=== PATIENT | male | born 1940 | race Caucasian/White ===

== ENCOUNTER 2016-11-06 08:32 | Day surgery (SDC) | payer OTHER, MEDICARE ==
[2016-11-05 14:14] VITALS: BMI 27.1
[2016-11-06] MEDS ORDERED: PROPOFOL 20 ML ONE ×3 (10:00)
[2016-11-06 11:13] VITALS: TEMP 97.5
[2016-11-06 11:19] VITALS: PULSE 60
[2016-11-06 11:56] VITALS: BP 114/64
--- NOTE | 2016-11-11 11:20 | PATH ---
Surgical Pathology Report Patient Name: DAISY CARRION [facility]. Rec. #: [id number] /Age/Gender: 1940 (Age: 76) / M Account: [id number] Location: U-ENDOSCOPY Taken: 11/06/2016 Received: 11/06/2016 Reported: 11/09/2016 Physicians: Solomon Petersen M.D. Specimen(s) Received A: BX 2ND PORTION DUODENUM & BULB B: BX ANTRUM C: BX DISTAL ESOPHAGUS D: BX MID ESOPHAGUS E: BX CECUM F: BX RIGHT COLON G: BX TRANSVERSE COLON H: BX DESCENDING COLON I: BX SIGMOID COLON J: BX RECTUM Clinical History Dysphagia, ulcerative colitis surveillance Eosinophilic esophagitis, mild gastritis, quiescent ulcerative colitis Final Diagnosis A. DUODENUM, SECOND PORTION AND BULB, BIOPSY: DUODENAL MUCOSA WITH NO PATHOLOGIC CHANGES. NO HISTOLOGIC EVIDENCE OF GLUTEN SENSITIVE ENTEROPATHY (CELIAC SPRUE) IDENTIFIED. B. DESIGNATED ANTRUM, BIOPSY: SQUAMOUS MUCOSA WITH PAPILLOMATOSIS AND SUPERFICIAL ULCERATION SUGGESTIVE OF REFLUX ESOPHAGITIS. NO INTESTINAL METAPLASIA IDENTIFIED (NO ADRIAN'S IDENTIFIED). NO EOSINOPHILIC ESOPHAGITIS IDENTIFIED. FUNGAL STAIN (PAS) IS NEGATIVE. C. DESIGNATED DISTAL ESOPHAGUS, BIOPSY: GASTRIC ANTRAL MUCOSA WITH MILD CHRONIC GASTRITIS. IMMUNOSTAIN FOR H. PYLORI IS NEGATIVE. D. DESIGNATED MIDESOPHAGUS, BIOPSY: SQUAMOUS MUCOSA WITH PAPILLOMATOSIS AND SUPERFICIAL ULCERATION SUGGESTIVE OF REFLUX ESOPHAGITIS. NO INTESTINAL METAPLASIA IDENTIFIED (NO ADRIAN'S IDENTIFIED). NO EOSINOPHILIC ESOPHAGITIS IDENTIFIED. FUNGAL STAIN (PAS) IS POSITIVE (RARE FUNGAL AND YEAST FORMS). E. COLON, CECUM, BIOPSY: COLONIC MUCOSA WITH NONSPECIFIC FOCAL ACTIVE COLITIS. NO ARCHITECTURAL DISTORTION, GRANULOMATA, OR DYSPLASIA IDENTIFIED. F. COLON, RIGHT, BIOPSY: COLONIC MUCOSA WITH NO PATHOLOGIC CHANGES. NO ACTIVE COLITIS, ARCHITECTURAL DISTORTION, GRANULOMATA, OR DYSPLASIA IDENTIFIED. NO MICROSCOPIC COLITIS IDENTIFIED (NO LYMPHOCYTIC OR COLLAGENOUS COLITIS IDENTIFIED). G. COLON, TRANSVERSE, BIOPSY: COLONIC MUCOSA WITH NO PATHOLOGIC CHANGES. NO ACTIVE COLITIS, ARCHITECTURAL DISTORTION, GRANULOMATA, OR DYSPLASIA IDENTIFIED. NO MICROSCOPIC COLITIS IDENTIFIED (NO LYMPHOCYTIC OR COLLAGENOUS COLITIS IDENTIFIED). H. COLON, DESCENDING, BIOPSY: COLONIC MUCOSA WITH FOCAL PANETH CELL METAPLASIA SUGGESTIVE OF QUIESCENT COLITIS. NO ACTIVE COLITIS, GRANULOMATA OR DYSPLASIA IDENTIFIED. I. COLON, SIGMOID, BIOPSY: COLONIC MUCOSA WITH FOCAL HYPERPLASIA OF MUCOSA ASSOCIATED LYMPHOID TISSUE, AND FOCAL ARCHITECTURAL DISTORTION SUGGESTIVE OF QUIESCENT COLITIS. NO ACTIVE COLITIS, GRANULOMATA OR DYSPLASIA IDENTIFIED. J. COLON, RECTUM, BIOPSY: COLONIC MUCOSA WITH NO PATHOLOGIC CHANGES. NO ACTIVE COLITIS, ARCHITECTURAL DISTORTION, GRANULOMATA, OR DYSPLASIA IDENTIFIED. NO MICROSCOPIC COLITIS IDENTIFIED (NO LYMPHOCYTIC OR COLLAGENOUS COLITIS IDENTIFIED). Electronically Signed Yfn Samson M.D. Gross Description A. Received in formalin, labeled "biopsy second portion of duodenum and bulb" are 3 osorio, irregular portions of soft tissue averaging 0.3 cm. in greatest dimension. The specimens are submitted in toto in one cassette. B. Received in formalin, labeled "biopsy antrum" are 2 osorio, irregular portions of soft tissue averaging 0.4 cm. in greatest dimension. The specimens are submitted in toto in one cassette. C. Received in formalin, labeled "distal esophagus" is a osorio, irregular portion of soft tissue measuring 0.2 cm. in greatest dimension. The specimen is submitted in toto in one cassette. D. Received in formalin, labeled "mid esophagus" are 3 osorio, irregular portions of soft tissue ranging from 0.1-0.7 cm. in greatest dimension. The specimens are submitted in toto in one cassette. E. Received in formalin, labeled "biopsy cecum" is a osorio, irregular portion of soft tissue measuring 0.1 cm. in greatest dimension. The specimen is submitted in toto in one cassette. F. Received in formalin, labeled "biopsy right colon" are 3 osorio, irregular portions of soft tissue ranging from 0.2-0.5 cm. in greatest dimension. The specimens are submitted in toto in one cassette. G. Received in formalin, labeled "biopsy transverse colon" are 4 osorio, irregular portions of soft tissue ranging from 0.2-0.9 cm. in greatest dimension. The specimens are submitted in toto in one cassette. H. Received in formalin, labeled "biopsy descending colon" are 4 osorio, irregular portions of soft tissue ranging from 0.2-0.5 cm. in greatest dimension. The specimens are submitted in toto in one cassette. I. Received in formalin, labeled "biopsy sigmoid colon" are 4 osorio, irregular portions of soft tissue ranging from 0.2-0.4 cm. in greatest dimension. The specimens are submitted in toto in one cassette. J. Received in formalin, labeled "biopsy rectum" are 4 osorio, irregular portions of soft tissue ranging from 0.2-0.6 cm. in greatest dimension. The specimens are submitted in toto in one cassette. 11/06/201611/06/2016
--- NOTE | 2016-11-11 11:20 | PATH ---
Cytology Non-Gynecological Report Patient Name: DAISY CARRION [facility]. Rec. #: [id number] /Age/Gender: 1940 (Age: 76) / M Account: [id number] Location: [facility] Taken: 11/06/2016 Received: 11/09/2016 Reported: 11/10/2016 Physicians: Solomon Petersen M.D. 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 NO MALIGNANT CELLS IDENTIFIED. REACTIVE SQUAMOUS CELLS. ACUTE INFLAMMATION. SCATTERED FUNGAL ORGANISMS MORPHOLOGICALLY CONSISTENT WITH ТАТЬЯНА SPECIES PRESENT. Comment: Also refer to [id number] (part D) for the biopsy results. Electronically Signed Nahum Price M.D. Gross Description Received is a brush and one slide in 95% alcohol. Two additional smear slides are prepared, total of three Pap stained smear slides are made.
== END 2016-11-06 12:02 | disposition home or self-care (01) ==
LOC: JASU-ENDO 08:32
PROVIDERS: ATTEND Internal Medicine Gastroenterology
PROC: 0DB28ZX Excision of Middle Esophagus, Via Natural or Artificial Opening Endoscopic, Diagnostic (ICD-10-PCS; 2016-11-06)
PROC: 0DB68ZX Excision of Stomach, Via Natural or Artificial Opening Endoscopic, Diagnostic (ICD-10-PCS; 2016-11-06)
PROC: 0DB98ZX Excision of Duodenum, Via Natural or Artificial Opening Endoscopic, Diagnostic (ICD-10-PCS; 2016-11-06)
PROC: 0DB38ZX Excision of Lower Esophagus, Via Natural or Artificial Opening Endoscopic, Diagnostic (ICD-10-PCS; 2016-11-06)
PROC: 0DBE8ZX Excision of Large Intestine, Via Natural or Artificial Opening Endoscopic, Diagnostic (ICD-10-PCS; principal; 2016-11-06 10:00)
DX: Z12.11 Encounter for screening for malignant neoplasm of colon (principal); Z87.19 Personal history of other diseases of the digestive system; K64.8 Other hemorrhoids; K63.89 Other specified diseases of intestine; K57.30 Diverticulosis of large intestine without perforation or abscess without bleeding; K20.0 Eosinophilic esophagitis; K25.9 Gastric ulcer, unspecified as acute or chronic, without hemorrhage or perforation
CPT/HCPCS: 88104; 88305-TC; 88312-TC; 88342-TC

== ENCOUNTER 2017-11-01 07:06 | Day surgery (SDC) | payer OTHER, MEDICARE ==
[2017-10-29 13:41] VITALS: BMI 24.3
[2017-11-01] MEDS ORDERED: LIDOCAINE HCL 2% (20ML MULTI-DOSE VIAL) NR ONE (08:00)
[2017-11-01] MEDS ORDERED: PROPOFOL 20 ML ONE ×3 (08:01)
[2017-11-01 11:15] VITALS: BP 134/78; PULSE 77; TEMP 97.9
--- NOTE | 2017-11-03 12:20 | PATH ---
Surgical Pathology Report Patient Name: DAISY CARRION [facility]. Rec. #: [id number] /Age/Gender: 1940 (Age: 77) / M Account: [id number] Location: U-ENDOSCOPY Taken: 11/01/2017 Received: 11/01/2017 Reported: 11/03/2017 Physicians: Solomon Petersen M.D. Specimen(s) Received A: BX MID ESOPHAGUS @ 25CM B: BX CECUM C: POLYP RIGHT COLON D: BX TRANSVERSE COLON E: BX SIGMOID F: BX RECTUM Clinical History Dysphagia with mid esophageal ring, ulcerative colitis, surveillance Postoperative diagnosis: Esophageal narrowing with ring, right colon polyp, quiescent colitis Final Diagnosis A. MID ESOPHAGUS, 25 CM, BIOPSY: SQUAMOUS MUCOSA WITH MILD ACUTE ESOPHAGITIS AND BASAL CELL HYPERPLASIA. PAS SPECIAL STAIN FOR FUNGUS IS POSITIVE FOR FUNGAL FORMS MORPHOLOGICALLY CONSISTENT WITH MATIAS SPECIES. SEE COMMENT. B. CECUM, BIOPSY: COLONIC MUCOSA WITH FOCAL MILD CHRONIC ACTIVE COLITIS INCLUDING FOCAL CRYPTITIS, ARCHITECTURAL DISTORTION, INCREASED ACUTE AND CHRONIC INFLAMMATORY CELLS WITHIN LAMINA PROPRIA, AND PROMINENT LYMPHOID AGGREGATES. NO GRANULOMA OR DYSPLASIA IDENTIFIED. C. COLON, RIGHT, POLYP, BIOPSY: TUBULAR ADENOMA. D. TRANSVERSE COLON, BIOPSY: COLONIC MUCOSA WITH MILD ARCHITECTURAL DISTORTION AND INCREASED CHRONIC INFLAMMATORY CELLS WITHIN LAMINA PROPRIA. NO GRANULOMA OR DYSPLASIA IDENTIFIED. E. SIGMOID COLON, BIOPSY: COLONIC MUCOSA WITH MILD ARCHITECTURAL DISTORTION AND INCREASED CHRONIC INFLAMMATORY CELLS WITHIN LAMINA PROPRIA AND FOCAL SUPERFICIAL HYPERPLASTIC FEATURES. NO GRANULOMA OR DYSPLASIA IDENTIFIED. F. RECTUM, BIOPSY: COLONIC MUCOSA WITH ARCHITECTURAL DISTORTION, INCREASED INFLAMMATORY CELLS, FOCAL FIBROSIS WITHIN LAMINA PROPRIA AND SUPERFICIAL HYPERPLASTIC FEATURES. NO GRANULOMA OR DYSPLASIA IDENTIFIED. Comment: Part A, Few eosinophils are noted (up to 4/hpf) and not diagnostic for eosinophilic esophagitis. The specimen is superficial without any submucosa component to fully evaluate for features of scleroderma. Parts B-F, History of ulcerative colitis is noted. Findings are compatible with idiopathic/inflammatory bowel disease. Suggest clinical and endoscopic correlation. Electronically Signed Simona Rivera M.D. Gross Description A. Received in formalin, labeled "biopsy mid esophagus at 25 cm" are 3 osorio, irregular portions of soft tissue ranging from 0.1-0.3 cm. in greatest dimension. The specimens are submitted in toto in one cassette. B. Received in formalin, labeled "biopsy cecum" are 2 osorio, irregular portions of soft tissue averaging 0.2 cm. in greatest dimension. The specimens are submitted in toto in one cassette. C. Received in formalin, labeled "biopsy polyp at right colon" are 5 osorio, irregular portions of soft tissue ranging from 0.2-0.7 cm. in greatest dimension. The specimens are submitted in toto in one cassette. D. Received in formalin, labeled "biopsy transverse colon" are 4 osorio, irregular portions of soft tissue ranging from 0.2-0.4 cm. in greatest dimension. The specimens are submitted in toto in one cassette. E. Received in formalin, labeled "biopsy sigmoid" are 3 osorio, irregular portions of soft tissue ranging from 0.1-0.4 cm. in greatest dimension. The specimens are submitted in toto in one cassette. F. Received in formalin, labeled "biopsy rectum" are 5 osorio, irregular portions of soft tissue ranging from 0.2-0.5 cm. in greatest dimension. The specimens are submitted in toto in one cassette. 11/01/2017 [facility]11/01/2017
== END 2017-11-01 11:15 | disposition home or self-care (01) ==
LOC: JASU-ENDO 07:06
PROVIDERS: ATTEND Internal Medicine Gastroenterology
PROC: 0D728ZZ Dilation of Middle Esophagus, Via Natural or Artificial Opening Endoscopic (ICD-10-PCS; 2017-11-01)
PROC: 0DB28ZX Excision of Middle Esophagus, Via Natural or Artificial Opening Endoscopic, Diagnostic (ICD-10-PCS; 2017-11-01)
PROC: 0DBK8ZX Excision of Ascending Colon, Via Natural or Artificial Opening Endoscopic, Diagnostic (ICD-10-PCS; principal; 2017-11-01 08:00)
DX: Z12.11 Encounter for screening for malignant neoplasm of colon (principal); K51.80 Other ulcerative colitis without complications; D12.2 Benign neoplasm of ascending colon; R13.19 Other dysphagia
CPT/HCPCS: 74220-TC-FY; 88305-TC; 88312-TC

== ENCOUNTER 2018-04-22 08:11 | Day surgery (SDC) | payer OTHER, MEDICARE ==
[2018-04-21 11:14] VITALS: BMI 23.6
[2018-04-22] MEDS ORDERED: ROCURONIUM BROMIDE 50 MG/5 ML VIAL ONE (09:13)
[2018-04-22] MEDS ORDERED: PROPOFOL 20 ML ONE (09:13)
[2018-04-22] MEDS ORDERED: MIDAZOLAM HCL 2 MG/2 ML SINGLE DOSE VIAL ONE (09:14)
[2018-04-22] MEDS ORDERED: BUPIVACAINE HCL/PF 0.5% (5MG/ML) 10 ML VIAL ONE ×2 (09:36→10:48)
--- NOTE | 2018-04-22 09:43 | HP ---
History & Physical Update - History History: No Change - Physical Physical: No Change - Assessment Assessment: No Change - Plan Plan: No Change (no changes since visit on 04/19/18)
[2018-04-22] MEDS ORDERED: ePHEDrine SULFATE 50 MG/1 ML AMPULE ONE (10:18)
[2018-04-22] MEDS ORDERED: ceFAZolin SODIUM 1 GM VIAL IVPB ONE (10:20)
[2018-04-22] MEDS ORDERED: PHENYLEPHRINE HCL 10 MG/1 ML SINGLE DOSE VIAL ONE (10:32)
[2018-04-22] MEDS ORDERED: NEOSTIGMINE METHYLSULFATE 0.5 MG/ML - 10 ML MDV ONE (10:32)
[2018-04-22] MEDS ORDERED: GLYCOPYRROLATE 0.2 MG/1 ML VIAL ONE ×2 (10:32→11:23)
[2018-04-22] MEDS ORDERED: ONDANSETRON 4 MG/2 ML VIAL IVPUSH PRN (11:20)
[2018-04-22] MEDS ORDERED: LACTATED RINGERS SOLUTION 1,000 ML IV SCH (11:30)
[2018-04-22] MEDS ORDERED: BUPIVACAINE HCL/PF 0.5% (5MG/ML) 10 ML VIAL IJ ONE (11:38)
--- NOTE | 2018-04-22 11:43 | OP ---
Operative Note - Note: Operative Date: 04/22/18 Pre-Operative Diagnosis: UMBILICAL HERNIA WITH OBSTRUCTION Operation: UMBILICAL HERNIA REPAIR WITH MESH, PARTIAL OMENTECTOMY Findings: 10 X 10 CM UMBILICAL HERNIA WITH INCARCERATED OMENTUM Implants: WENTRALEX ST MESH 3.2" Post-Operative Diagnosis: Same as Pre-op Surgeon: Norm Chambers Inorganic Chemistry Professor: Roxanna Gomez Anesthesia: General Specimens Removed: OMENTUM Estimated Blood Loss (mls): 15 Operative Report Dictated: Yes
[2018-04-22] MEDS ORDERED: ALBUTEROL SO4 8 GM HFA INHALER IH PRN (12:06)
[2018-04-22] MEDS ORDERED: LORazepam 0.5 MG TABLET PO PRN (12:06)
[2018-04-22] MEDS ORDERED: oxyCODONE HCL 5 MG TABLET PO PRN (12:10)
[2018-04-22] MEDS ORDERED: DOCUSATE SODIUM 100 MG CAPSULE (FP) PO PRN (12:11)
--- NOTE | 2018-04-22 12:17 | SURG ---
Surgery Chief Embalmer Note Chief Embalmer: Roxanna Gomez PA-C Date of Service: 04/22/18 Diagnosis: UMBILICAL HERNIA WITH OBSTRUCTION Procedure: UMBILICAL HERNIA REPAIR WITH MESH, PARTIAL OMENTECTOMY I was present for the entirety of the operative procedure. For further detail, please refer to operative report. Visit type - Case Type Case Type: Scheduled - Emergency Emergency Visit: No - New patient This patient is new to me today: Yes Date on this admission: 04/22/18
[2018-04-22] MEDS ORDERED: SODIUM CHLORIDE 1,000 ML IV SCH (12:30)
[2018-04-22] MEDS ORDERED: MESALAMINE PO SCH (14:00)
[2018-04-22] MEDS: buPROPion HCL 75 MG TABLET PO SCH ×2 (18:36→22:09)
[2018-04-22] MEDS ORDERED: ROSUVASTATIN CA 5 MG TABLET (FP) PO SCH (22:00)
[2018-04-22] MEDS: oxyCODONE HCL 5 MG TABLET PO PRN (23:01)
[2018-04-23] MEDS: oxyCODONE HCL 5 MG TABLET PO PRN ×3 (02:43→14:11)
[2018-04-23] MEDS: buPROPion HCL 75 MG TABLET PO SCH ×2 (05:57→14:11)
[2018-04-23 06:05] VITALS: BP 107/64; PULSE 75; TEMP 98.9
[2018-04-23] MEDS ORDERED: TAMSULOSIN HCL 0.4 MG CAP PO SCH (08:30)
[2018-04-23] MEDS ORDERED: PT OWN MED DRAWER 7, Y5N ONE ×2 (08:59→14:01)
[2018-04-23] MEDS ORDERED: MERCAPTOPURINE 50 MG TABLET PO SCH (10:00)
[2018-04-23] MEDS ORDERED: FINASTERIDE 5 MG TABLET (FP) PO SCH (10:00)
[2018-04-23] MEDS ORDERED: FOLIC ACID 1 MG TABLET (FP) PO SCH (10:00)
[2018-04-23] MEDS ORDERED: amLODIPine BESYLATE 10 MG TABLET (FP) PO SCH (10:00)
--- NOTE | 2018-04-25 15:34 | PATH ---
Surgical Pathology Report Patient Name: DAISY CARRION Med. Rec. #: [id number] /Age/Gender: 1940 (Age: 78) / M Account: [id number] Location: AMBULATORY SURG Taken: 04/22/2018 Received: 04/22/2018 Reported: 04/25/2018 Physicians: Norm Chambers M.D. Specimen(s) Received OMENTUM AND HERNIA SAC AND SKIN Clinical History Umbilical hernia Final Diagnosis OMENTUM, HERNIA SAC, SKIN, OPEN UMBILICAL HERNIA REPAIR: FIBROADIPOSE TISSUE CONSISTENT WITH HERNIA SAC. BENIGN OMENTAL ADIPOSE TISSUE. SKIN WITHOUT SIGNIFICANT PATHOLOGIC FINDINGS. Electronically Signed Simona Rivera M.D. Gross Description Received in formalin, labeled "omentum, hernia sac and skin" is a portion of 12 x 10 x 3.0 cm adipose tissue consistent with omentum and separate fragments of skin, membranous to fibroadipose tissue measuring 9.0 x 5.0 x 2 cm in aggregate. Water Filterer sections are submitted in two cassettes. Cassette #1: skin adipose tissue and membranous tissue. #2: Omentum KWS/04/22/2018 sulki/04/22/2018
--- NOTE | 2018-04-26 08:33 | OP ---
DATE OF OPERATION: 04/22/2018 LOCATION: Ambulatory surgery. PROCEDURE: Open ventral hernia repair with mesh and partial omentectomy. PREOPERATIVE DIAGNOSIS: Ventral umbilical hernia with obstruction. POSTOPERATIVE DIAGNOSIS: Ventral umbilical hernia with obstruction. SURGEON: Norm Chambers MD ANESTHESIA: General endotracheal. FINDINGS ON PROCEDURE: This is a 78-year-old male who presents with longstanding history of slowly growing umbilical ventral hernia just about 10 x 10 cm in size. The incarcerated hernia was noted to contain omentum, and hernia was noted to be reducible. So, patient was advised elective repair of the hernia, and consent was obtained after discussing the risks, benefits, and alternatives of the procedure. DESCRIPTION OF PROCEDURE: Patient was brought to the operating room and placed in supine position. General endotracheal anesthesia was administered. The abdomen was prepped and draped in the usual sterile fashion. Using scalpel blade No. 10, an elliptical incision was made with dissection carried down to the subcutaneous tissue. Further dissection using Bovie cautery was done to open the hernia sac. This contained a large amount of incarcerated omentum. The omentum was serially clamped and ligated with Vicryl 2-0 ligatures. The omental stump was then pushed back to the peritoneal cavity. A 3-cm umbilical defect was noted. The hernia sac was completely excised down to the level of the fascia, and the subcutaneous tissue was undermined about 1 cm on each side of the defect. There was a large size 3.2-inch round Ventralex ST Mesh, which was then deployed as an intraperitoneal underlay mesh with its ribbon anchored to the fascia on each side of the midline with Prolene 0 suture. The defect was partially closed with interrupted Prolene 0 suture taking bites on the mesh at the superior and inferior ends of the hernia defect. Afterwards, the skin was closed with interrupted Vicryl 0 suture for the dermis, interrupted Polysorb 3-0 for the dermis, and continuous Biosyn 4-0 suture for the subcuticular layer. The wound closure was then covered with pressure dressing. The patient was successfully extubated and transferred to the post-anesthesia care unit in satisfactory condition. ESTIMATED BLOOD LOSS: About 15 mL. WOUND CLASS: Clean. The patient received 1 g of Ancef prior to the start of the procedure. Raven [id number]
== END 2018-04-23 14:49 | disposition home or self-care (01) ==
LOC: JASUSAT 08:11 → JASU-SURG 08:11 → J8W 17:45 → JASUSAT 04-23 14:49
PROVIDERS: ATTEND Surgery
PROC: 0DBU0ZZ Excision of Omentum, Open Approach (ICD-10-PCS; 2018-04-22)
PROC: 0WUF0JZ Supplement Abdominal Wall with Synthetic Substitute, Open Approach (ICD-10-PCS; principal; 2018-04-22 09:30)
DX: K43.6 Other and unspecified ventral hernia with obstruction, without gangrene (principal)
CPT/HCPCS: 88305-TC; 94760

== ENCOUNTER 2022-10-27 11:23 | Inpatient (IN) | payer OTHER, MEDICARE ==
[2022-10-27 11:31] VITALS: BMI 27.3
[2022-10-27] MEDS ORDERED: VANCOMYCIN 1 GM in D5W (PRE-DOCKED) 1,000 MG/250 ML (RESTRICTED TO ID ONLY IVPB ONE (12:44)
[2022-10-27] MEDS ORDERED: AMPICILLIN NA/SULBACTAM NA 3 GM in SODIUM CHLORIDE 100 ML IVPB ONE (12:44)
[2022-10-27] MEDS ORDERED: ACETAMINOPHEN 1000 MG/100 ML BAG IVPB ONE (12:46)
[2022-10-27] MEDS ORDERED: VANCOMYCIN/WATER FOR INJ (PEG) 1,000 MG/200 ML BAG IVPB ONE (13:06)
[2022-10-27] MEDS ORDERED: AMPICILLIN NA/SULBACTAM NA 1.5 GM VIAL ONE ×2 (13:06→13:27)
[2022-10-27] MEDS ORDERED: ACETAMINOPHEN INJECTION 100 ML IVPB ONE ×2 (13:06→14:39)
[2022-10-27] MEDS ORDERED: CEFEPIME HCL/D5W 2 GM/50 ML BAG IVPB ONE (13:35)
[2022-10-27 14:12] LABS: BASO % 0.4 % (0-2.0); EOS % 2.1 % (0-4.5); HEMOGLOBIN 12.3 GM/dL (11.7-16.9); LYMPH % 15.8 % (8-40); MCH 28.6 pg (25.7-33.7); MCHC 34.1 g/dl (32.0-35.9); MEAN CELL VOLUME 83.9 fl (80-96); MEAN PLT VOLUME 8.5 fl (7.5-11.1); MONO % 7.9 % (3.8-10.2); NEUT % 73.8 % (42.8-82.8); PLATELET COUNT 160 10^3/uL (134-434); RBC 4.28 M/mm3 (4.00-5.60); RDW 14.8 % (11.9-15.9); WHITE BLOOD COUNT 8.2 K/mm3 (4.0-10.0)
[2022-10-27 14:32] LABS: POTASSIUM 5.8 mmol/L (3.5-5.1)
[2022-10-27 14:35] LABS: ALBUMIN 3.5 g/dl (3.4-5.0); BLOOD UREA NITROGEN 30.6 mg/dL (7-18)
[2022-10-27 14:38] LABS: CREATININE 2.4 mg/dL (0.55-1.3)
[2022-10-27 14:39] LABS: TOT PROT 7.5 g/dl (6.4-8.2)
[2022-10-27 14:40] LABS: BILIRUBIN,TOTAL 0.5 mg/dL (0.2-1)
[2022-10-27] MEDS ORDERED: CEFEPIME 2 GM/100 ML BAG IVPB ONE (14:40)
[2022-10-27 14:57] LABS: ERYTHROCYTE SEDIMENTATION RATE 44 mm/hr (0-20)
[2022-10-27] MEDS ORDERED: APIXABAN 5 MG TABLET PO ONE (15:10)
[2022-10-27] MEDS ORDERED: APIXABAN 5 MG TABLET ONE (15:44)
[2022-10-27] MEDS ORDERED: oxyCODONE HCL 5 MG TABLET PO ONE (22:11)
[2022-10-27] MEDS: APIXABAN 5 MG TABLET PO SCH (22:15)
[2022-10-28 09:25] LABS: BASO % 0.4 % (0-2.0); EOS % 2.1 % (0-4.5); HEMATOCRIT 37.5 % (35.4-49); HEMOGLOBIN 12.9 GM/dL (11.7-16.9); LYMPH % 9.3 % (8-40); MCHC 34.5 g/dl (32.0-35.9); MEAN PLT VOLUME 8.4 fl (7.5-11.1); MONO % 5.1 % (3.8-10.2); NEUT % 83.1 % (42.8-82.8); PLATELET COUNT 168 10^3/uL (134-434); RBC 4.46 M/mm3 (4.00-5.60); RDW 14.8 % (11.9-15.9); WHITE BLOOD COUNT 7.2 K/mm3 (4.0-10.0)
[2022-10-28 09:46] LABS: POTASSIUM 4.6 mmol/L (3.5-5.1)
[2022-10-28] MEDS: TAMSULOSIN HCL 0.4 MG CAP PO SCH (09:49)
[2022-10-28] MEDS: FINASTERIDE 5 MG TABLET (FP) PO SCH (09:49)
[2022-10-28] MEDS: APIXABAN 5 MG TABLET PO SCH (09:49)
[2022-10-28] MEDS: SERTRALINE HCL 50 MG TABLET (FP) PO SCH (09:49)
[2022-10-28 09:53] LABS: ALBUMIN 3.4 g/dl (3.4-5.0); BLOOD UREA NITROGEN 28.3 mg/dL (7-18); CALCIUM 8.6 mg/dL (8.5-10.1)
[2022-10-28] MEDS: ROSUVASTATIN CA 5 MG TABLET PO SCH (09:53)
[2022-10-28 09:54] LABS: MAGNESIUM 1.7 mg/dL (1.8-2.4)
[2022-10-28 09:56] LABS: CREATININE 2.2 mg/dL (0.55-1.3); PHOSPHOROUS 3.8 mg/dL (2.5-4.9)
[2022-10-28 09:57] LABS: BILIRUBIN,TOTAL 0.6 mg/dL (0.2-1); TOT PROT 7.4 g/dl (6.4-8.2)
[2022-10-28] MEDS ORDERED: ACETAMINOPHEN 325 MG TABLET (FP) PO ONE (11:45)
[2022-10-28] MEDS ORDERED: oxyCODONE HCL 5 MG TABLET PO ONE (11:45)
[2022-10-28] MEDS ORDERED: VANCOMYCIN/WATER 1250 MG 1,250 MG/250 ML BAG IVPB ONE (12:00)
[2022-10-28] MEDS ORDERED: VANCOMYCIN/WATER 1,250 MG/250 ML BAG (RESTRICTED TO ID ONLY) IVPB SCH (12:00)
[2022-10-28] MEDS ORDERED: VANCOMYCIN/WATER 1250 MG 1,250 MG/250 ML BAG IVPB SCH (12:45)
[2022-10-28] MEDS: GABAPENTIN 100 MG CAPSULE PO SCH (15:04)
[2022-10-28] MEDS ORDERED: ACETAMINOPHEN 325 MG TABLET (FP) PO PRN (15:42)
[2022-10-28] MEDS: MUPIROCIN CA 2% TOPICAL CREAM 15 GM TUBE TP SCH (18:37)
[2022-10-29] MEDS: GABAPENTIN 100 MG CAPSULE PO SCH ×4 (00:05→21:24)
[2022-10-29] MEDS: APIXABAN 5 MG TABLET PO SCH ×3 (00:06→21:24)
[2022-10-29] MEDS: MUPIROCIN CA 2% TOPICAL CREAM 15 GM TUBE TP SCH ×3 (00:06→10:50)
[2022-10-29] MEDS: MIRTAZAPINE 15 MG TABLET (FP) PO SCH ×2 (00:08→21:26)
[2022-10-29] MEDS: ACETAMINOPHEN 650 MG/20.3 ML ORAL SOLUTION (CUPS) PO PRN ×3 (01:41→19:54)
[2022-10-29] MEDS: METOPROLOL TARTRATE 25 MG TABLET (FP) PO SCH ×2 (10:30→21:24)
[2022-10-29] MEDS: ROSUVASTATIN CA 5 MG TABLET PO SCH (10:50)
[2022-10-29] MEDS: VANCOMYCIN/WATER 1250 MG 1,250 MG/250 ML BAG IVPB SCH (10:50)
[2022-10-29] MEDS: FINASTERIDE 5 MG TABLET (FP) PO SCH (10:50)
[2022-10-29] MEDS: TAMSULOSIN HCL 0.4 MG CAP PO SCH (10:50)
[2022-10-29] MEDS: SERTRALINE HCL 50 MG TABLET (FP) PO SCH (10:50)
[2022-10-29 10:56] LABS: IRON SERUM 75 ug/dL (50-175)
[2022-10-29 10:57] LABS: TOTAL IRON BINDING CAPACITY 311 ug/dL (250-450)
[2022-10-29 18:27] LABS: BASO % 0.3 % (0-2.0); EOS % 4.1 % (0-4.5); HEMATOCRIT 35.5 % (35.4-49); LYMPH % 10.5 % (8-40); MCH 28.3 pg (25.7-33.7); MCHC 33.9 g/dl (32.0-35.9); MEAN CELL VOLUME 83.3 fl (80-96); MEAN PLT VOLUME 8.2 fl (7.5-11.1); NEUT % 78.1 % (42.8-82.8); PLATELET COUNT 166 10^3/uL (134-434); RBC 4.26 M/mm3 (4.00-5.60); WHITE BLOOD COUNT 6.7 K/mm3 (4.0-10.0)
[2022-10-29 18:54] LABS: POTASSIUM 4.8 mmol/L (3.5-5.1)
[2022-10-29 18:58] LABS: CALCIUM 8.3 mg/dL (8.5-10.1)
[2022-10-29 18:59] LABS: BLOOD UREA NITROGEN 33.6 mg/dL (7-18)
[2022-10-29 19:02] LABS: CREATININE 2.4 mg/dL (0.55-1.3)
[2022-10-30] MEDS: MUPIROCIN CA 2% TOPICAL CREAM 15 GM TUBE TP SCH ×3 (00:10→21:21)
[2022-10-30] MEDS: GABAPENTIN 100 MG CAPSULE PO SCH ×3 (05:33→21:13)
[2022-10-30] MEDS: TAMSULOSIN HCL 0.4 MG CAP PO SCH (08:36)
[2022-10-30] MEDS: FINASTERIDE 5 MG TABLET (FP) PO SCH (09:02)
[2022-10-30] MEDS: SERTRALINE HCL 50 MG TABLET (FP) PO SCH (09:03)
[2022-10-30] MEDS: APIXABAN 5 MG TABLET PO SCH ×2 (09:03→21:13)
[2022-10-30] MEDS: METOPROLOL TARTRATE 25 MG TABLET (FP) PO SCH ×2 (09:03→21:13)
[2022-10-30] MEDS: ROSUVASTATIN CA 5 MG TABLET PO SCH (09:03)
[2022-10-30 10:15] LABS: POTASSIUM 5.2 mmol/L (3.5-5.1)
[2022-10-30 10:17] LABS: CALCIUM 9.2 mg/dL (8.5-10.1)
[2022-10-30 10:18] LABS: ALBUMIN 3.3 g/dl (3.4-5.0); BLOOD UREA NITROGEN 32.3 mg/dL (7-18)
[2022-10-30 10:21] LABS: CREATININE 2.4 mg/dL (0.55-1.3)
[2022-10-30 10:22] LABS: BILIRUBIN,TOTAL 0.8 mg/dL (0.2-1)
[2022-10-30 10:23] LABS: TOT PROT 7.3 g/dl (6.4-8.2)
[2022-10-30] MEDS ORDERED: SODIUM ZIRCONIUM CYCLOSILICATE (LOKELMA) 5 GM PACKET PO SCH (14:45)
[2022-10-30] MEDS ORDERED: ACETAMINOPHEN 325 MG TABLET (FP) ONE (21:09)
[2022-10-30] MEDS: MIRTAZAPINE 15 MG TABLET (FP) PO SCH (21:13)
[2022-10-30] MEDS: ACETAMINOPHEN 650 MG/20.3 ML ORAL SOLUTION (CUPS) PO PRN (21:15)
[2022-10-30] MEDS: ALBUTEROL SO4 HFA INHALER IH PRN (22:49)
[2022-10-31] MEDS: GABAPENTIN 100 MG CAPSULE PO SCH ×3 (05:19→22:14)
[2022-10-31] MEDS: TAMSULOSIN HCL 0.4 MG CAP PO SCH (09:44)
[2022-10-31] MEDS: ROSUVASTATIN CA 5 MG TABLET PO SCH (10:36)
[2022-10-31] MEDS: APIXABAN 5 MG TABLET PO SCH ×2 (10:36→22:14)
[2022-10-31] MEDS: FINASTERIDE 5 MG TABLET (FP) PO SCH (10:36)
[2022-10-31] MEDS: CYANOCOBALAMIN 1,000 MCG TABLET (FP) PO SCH (10:36)
[2022-10-31] MEDS: METOPROLOL TARTRATE 25 MG TABLET (FP) PO SCH ×2 (10:36→22:13)
[2022-10-31] MEDS: SERTRALINE HCL 50 MG TABLET (FP) PO SCH (10:36)
[2022-10-31] MEDS: VANCOMYCIN/WATER 1250 MG 1,250 MG/250 ML BAG IVPB SCH (10:37)
[2022-10-31 10:39] LABS: BASO % 0.1 % (0-2.0); EOS % 4.1 % (0-4.5); HEMATOCRIT 40.4 % (35.4-49); HEMOGLOBIN 13.5 GM/dL (11.7-16.9); LYMPH % 10.8 % (8-40); MCH 28.5 pg (25.7-33.7); MCHC 33.5 g/dl (32.0-35.9); MEAN CELL VOLUME 85.1 fl (80-96); MEAN PLT VOLUME 8.6 fl (7.5-11.1); MONO % 6.1 % (3.8-10.2); NEUT % 78.9 % (42.8-82.8); PLATELET COUNT 204 10^3/uL (134-434); RBC 4.75 M/mm3 (4.00-5.60); RDW 15.3 % (11.9-15.9); WHITE BLOOD COUNT 10.3 K/mm3 (4.0-10.0)
[2022-10-31 11:00] LABS: POTASSIUM 5.7 mmol/L (3.5-5.1)
[2022-10-31 11:02] LABS: CALCIUM 9.6 mg/dL (8.5-10.1)
[2022-10-31 11:03] LABS: ALBUMIN 3.6 g/dl (3.4-5.0); BLOOD UREA NITROGEN 35.2 mg/dL (7-18)
[2022-10-31 11:06] LABS: CREATININE 2.5 mg/dL (0.55-1.3)
[2022-10-31 11:07] LABS: BILIRUBIN,TOTAL 0.8 mg/dL (0.2-1); TOT PROT 7.6 g/dl (6.4-8.2)
[2022-10-31] MEDS ORDERED: diphenhydrAMINE HCL 25 MG CAPSULE (FP) PO ONE (12:14)
[2022-10-31] MEDS ORDERED: ACETAMINOPHEN 500 MG TABLET (FP) PO PRN (12:14)
[2022-10-31] MEDS: SODIUM ZIRCONIUM CYCLOSILICATE (LOKELMA) 5 GM PACKET PO SCH ×2 (12:52→22:14)
[2022-10-31] MEDS: MUPIROCIN CA 2% TOPICAL CREAM 15 GM TUBE TP SCH ×2 (12:55→22:15)
[2022-10-31] MEDS ORDERED: LACTULOSE 20 GM/30 ML UDC (FOR ORAL USE ONLY) PO ONE (15:42)
[2022-10-31] MEDS ORDERED: SODIUM CHLORIDE 0.45% 1,000 ML IV SCH (15:45)
[2022-10-31 17:49] LABS: EPI CELLS 2 /uL (0-25.1); HYALINE CASTS 1 /uL (0-3.1); PH,URINE 5.5 (5.0-8.0); URINE APPEARANCE CLEAR; URINE BACTERIA 1 /uL (0-1359); URINE BILIRUBIN NEGATIVE (NEGATIVE); URINE COLOR YELLOW; URINE GLUCOSE (UA) NEGATIVE (NEGATIVE); URINE KETONE NEGATIVE (NEGATIVE); URINE LEUK ESTERASE 1+ (NEGATIVE); URINE NITRITE NEGATIVE (NEGATIVE); URINE PROTEIN 1+ (NEGATIVE); URINE RBC 215 /uL (0-23.9); URINE UROBILINOGEN 0.2 mg/dL (0.2-1.0); URINE WBC 68 /uL (0-25.8)
[2022-10-31] MEDS: MIRTAZAPINE 15 MG TABLET (FP) PO SCH (22:14)
[2022-10-31] MEDS: ACETAMINOPHEN 650 MG/20.3 ML ORAL SOLUTION (CUPS) PO PRN (22:15)
[2022-10-31] MEDS: TETRAHYDROZOLINE HCL EYE DROPS OU PRN (22:58)
[2022-11-01] MEDS: GABAPENTIN 100 MG CAPSULE PO SCH ×3 (05:08→21:45)
[2022-11-01] MEDS: TAMSULOSIN HCL 0.4 MG CAP PO SCH (08:28)
[2022-11-01 10:07] LABS: BASO % 0.3 % (0-2.0); EOS % 4.3 % (0-4.5); HEMATOCRIT 38.1 % (35.4-49); HEMOGLOBIN 12.9 GM/dL (11.7-16.9); LYMPH % 6.6 % (8-40); MCH 28.6 pg (25.7-33.7); MCHC 33.8 g/dl (32.0-35.9); MEAN CELL VOLUME 84.7 fl (80-96); MEAN PLT VOLUME 8.3 fl (7.5-11.1); MONO % 5.4 % (3.8-10.2); NEUT % 83.4 % (42.8-82.8); PLATELET COUNT 166 10^3/uL (134-434); RBC 4.49 M/mm3 (4.00-5.60); WHITE BLOOD COUNT 8.8 K/mm3 (4.0-10.0)
[2022-11-01] MEDS: SODIUM ZIRCONIUM CYCLOSILICATE (LOKELMA) 5 GM PACKET PO SCH (10:20)
[2022-11-01] MEDS: SERTRALINE HCL 50 MG TABLET (FP) PO SCH (10:20)
[2022-11-01] MEDS: APIXABAN 5 MG TABLET PO SCH ×2 (10:21→21:45)
[2022-11-01] MEDS: CYANOCOBALAMIN 1,000 MCG TABLET (FP) PO SCH (10:21)
[2022-11-01] MEDS: ROSUVASTATIN CA 5 MG TABLET PO SCH (10:21)
[2022-11-01] MEDS: FINASTERIDE 5 MG TABLET (FP) PO SCH (10:21)
[2022-11-01] MEDS: MUPIROCIN CA 2% TOPICAL CREAM 15 GM TUBE TP SCH ×2 (10:22→21:45)
[2022-11-01 10:23] LABS: POTASSIUM 4.4 mmol/L (3.5-5.1)
[2022-11-01 10:27] LABS: BLOOD UREA NITROGEN 32.2 mg/dL (7-18); CALCIUM 8.8 mg/dL (8.5-10.1)
[2022-11-01 10:28] LABS: MAGNESIUM 1.9 mg/dL (1.8-2.4)
[2022-11-01 10:30] LABS: CREATININE 2.2 mg/dL (0.55-1.3)
[2022-11-01] MEDS: METOPROLOL TARTRATE 25 MG TABLET (FP) PO SCH ×2 (11:19→21:45)
[2022-11-01] MEDS: DOXYCYCLINE HYCLATE 100 MG CAPSULE PO SCH (18:05)
[2022-11-01] MEDS ORDERED: diphenhydrAMINE HCL 25 MG CAPSULE (FP) PO ONE (20:38)
[2022-11-01] MEDS: MIRTAZAPINE 15 MG TABLET (FP) PO SCH (21:46)
[2022-11-01] MEDS: ACETAMINOPHEN 650 MG/20.3 ML ORAL SOLUTION (CUPS) PO PRN (22:41)
[2022-11-02] MEDS: GABAPENTIN 100 MG CAPSULE PO SCH ×3 (06:32→21:17)
[2022-11-02] MEDS ORDERED: SODIUM CHLORIDE 1,000 ML IV SCH (08:45)
[2022-11-02] MEDS: TAMSULOSIN HCL 0.4 MG CAP PO SCH (09:14)
[2022-11-02] MEDS: SODIUM ZIRCONIUM CYCLOSILICATE (LOKELMA) 5 GM PACKET PO SCH (11:02)
[2022-11-02] MEDS: DOXYCYCLINE HYCLATE 100 MG CAPSULE PO SCH (11:02)
[2022-11-02] MEDS: FINASTERIDE 5 MG TABLET (FP) PO SCH (11:03)
[2022-11-02] MEDS: SERTRALINE HCL 50 MG TABLET (FP) PO SCH (11:03)
[2022-11-02] MEDS: METOPROLOL TARTRATE 25 MG TABLET (FP) PO SCH ×3 (11:03→21:18)
[2022-11-02] MEDS: APIXABAN 5 MG TABLET PO SCH ×2 (11:03→21:17)
[2022-11-02] MEDS: ROSUVASTATIN CA 5 MG TABLET PO SCH (11:03)
[2022-11-02] MEDS: CYANOCOBALAMIN 1,000 MCG TABLET (FP) PO SCH (11:03)
[2022-11-02] MEDS: ACETAMINOPHEN 650 MG/20.3 ML ORAL SOLUTION (CUPS) PO PRN ×2 (11:05→22:07)
[2022-11-02] MEDS: MUPIROCIN CA 2% TOPICAL CREAM 15 GM TUBE TP SCH ×2 (11:07→21:33)
[2022-11-02 12:30] VITALS: RESP 18
[2022-11-02] MEDS: SODIUM CHLORIDE 0.45% 1,000 ML IV SCH (12:42)
[2022-11-02 13:12] LABS: BASO % 0.1 % (0-2.0); HEMATOCRIT 39.4 % (35.4-49); HEMOGLOBIN 13.2 GM/dL (11.7-16.9); LYMPH % 8.5 % (8-40); MCH 28.4 pg (25.7-33.7); MCHC 33.5 g/dl (32.0-35.9); MEAN CELL VOLUME 84.8 fl (80-96); MEAN PLT VOLUME 8.2 fl (7.5-11.1); MONO % 6.2 % (3.8-10.2); NEUT % 81.2 % (42.8-82.8); PLATELET COUNT 176 10^3/uL (134-434); RBC 4.64 M/mm3 (4.00-5.60); RDW 15.2 % (11.9-15.9); WHITE BLOOD COUNT 11.3 K/mm3 (4.0-10.0)
[2022-11-02 13:21] LABS: POTASSIUM 5.1 mmol/L (3.5-5.1)
[2022-11-02 13:25] LABS: BLOOD UREA NITROGEN 31.7 mg/dL (7-18); CALCIUM 8.6 mg/dL (8.5-10.1)
[2022-11-02 13:26] LABS: ALBUMIN 3.5 g/dl (3.4-5.0); MAGNESIUM 1.8 mg/dL (1.8-2.4)
[2022-11-02 13:29] LABS: CREATININE 2.3 mg/dL (0.55-1.3); PHOSPHOROUS 2.1 mg/dL (2.5-4.9)
[2022-11-02 13:30] LABS: BILIRUBIN,TOTAL 0.6 mg/dL (0.2-1); TOT PROT 7.4 g/dl (6.4-8.2)
[2022-11-02] MEDS ORDERED: diphenhydrAMINE HCL 25 MG CAPSULE (FP) PO ONE (14:49)
[2022-11-02] MEDS ORDERED: SODIUM PHOSPHATE - 20 MM in SODIUM CHLORIDE 250 ML IVPB ONE (15:26)
[2022-11-02] MEDS ORDERED: SODIUM PHOSPHATE - 15 MM in SODIUM CHLORIDE 250 ML IVPB ONE (17:00)
[2022-11-02] MEDS: MIRTAZAPINE 15 MG TABLET (FP) PO SCH (21:18)
[2022-11-02] MEDS: ALBUTEROL SO4 HFA INHALER IH PRN (21:28)
[2022-11-03] MEDS: GABAPENTIN 100 MG CAPSULE PO SCH ×3 (05:25→21:04)
[2022-11-03] MEDS: SODIUM CHLORIDE 0.45% 1,000 ML IV SCH ×3 (06:41→14:54)
[2022-11-03] MEDS: diphenhydrAMINE HCL 25 MG CAPSULE (FP) PO PRN (06:45)
[2022-11-03] MEDS: TAMSULOSIN HCL 0.4 MG CAP PO SCH (08:09)
[2022-11-03 09:17] LABS: HEMATOCRIT 39.5 % (35.4-49); HEMOGLOBIN 13.3 GM/dL (11.7-16.9); MCH 28.7 pg (25.7-33.7); MCHC 33.7 g/dl (32.0-35.9); MEAN PLT VOLUME 8.4 fl (7.5-11.1); PLATELET COUNT 167 10^3/uL (134-434); RBC 4.64 M/mm3 (4.00-5.60); RDW 15.3 % (11.9-15.9); WHITE BLOOD COUNT 10.8 K/mm3 (4.0-10.0)
[2022-11-03 09:34] LABS: POTASSIUM 4.5 mmol/L (3.5-5.1)
[2022-11-03 09:37] LABS: CALCIUM 8.5 mg/dL (8.5-10.1)
[2022-11-03 09:38] LABS: MAGNESIUM 1.8 mg/dL (1.8-2.4)
[2022-11-03 09:41] LABS: CREATININE 2.3 mg/dL (0.55-1.3); PHOSPHOROUS 2.9 mg/dL (2.5-4.9)
[2022-11-03] MEDS: MUPIROCIN CA 2% TOPICAL CREAM 15 GM TUBE TP SCH ×2 (10:02→21:09)
[2022-11-03] MEDS: SERTRALINE HCL 50 MG TABLET (FP) PO SCH (10:03)
[2022-11-03] MEDS: CYANOCOBALAMIN 1,000 MCG TABLET (FP) PO SCH (10:03)
[2022-11-03] MEDS: METOPROLOL TARTRATE 25 MG TABLET (FP) PO SCH ×2 (10:03→21:05)
[2022-11-03] MEDS: FINASTERIDE 5 MG TABLET (FP) PO SCH (10:03)
[2022-11-03] MEDS: SODIUM ZIRCONIUM CYCLOSILICATE (LOKELMA) 5 GM PACKET PO SCH (10:03)
[2022-11-03] MEDS: ROSUVASTATIN CA 5 MG TABLET PO SCH (10:28)
[2022-11-03] MEDS ORDERED: CALAMINE 8% TOPICAL LOTION 177 ML BOTTLE TP PRN (12:00)
[2022-11-03] MEDS: HEPARIN NA (PORCINE) 5,000 UNITS/ML 1ML VIAL SQ SCH ×2 (15:25→21:05)
[2022-11-03] MEDS: predniSONE 20 MG TABLET (UD) PO SCH (15:25)
[2022-11-03] MEDS: MIRTAZAPINE 15 MG TABLET (FP) PO SCH (21:05)
[2022-11-04] MEDS: ACETAMINOPHEN 650 MG/20.3 ML ORAL SOLUTION (CUPS) PO PRN ×3 (00:18→23:14)
[2022-11-04] MEDS: GABAPENTIN 100 MG CAPSULE PO SCH ×3 (05:04→21:30)
[2022-11-04] MEDS: HEPARIN NA (PORCINE) 5,000 UNITS/ML 1ML VIAL SQ SCH ×3 (05:04→21:30)
[2022-11-04 08:27] LABS: POTASSIUM 4.7 mmol/L (3.5-5.1)
[2022-11-04 08:28] LABS: CALCIUM 8.5 mg/dL (8.5-10.1); HEMATOCRIT 34.8 % (35.4-49); HEMOGLOBIN 11.8 GM/dL (11.7-16.9); MCH 28.7 pg (25.7-33.7); MCHC 33.9 g/dl (32.0-35.9); MEAN CELL VOLUME 84.7 fl (80-96); MEAN PLT VOLUME 8.3 fl (7.5-11.1); PLATELET COUNT 191 10^3/uL (134-434); RDW 15.4 % (11.9-15.9); WHITE BLOOD COUNT 11.5 K/mm3 (4.0-10.0)
[2022-11-04] MEDS: TAMSULOSIN HCL 0.4 MG CAP PO SCH (08:28)
[2022-11-04 08:29] LABS: MAGNESIUM 1.8 mg/dL (1.8-2.4)
[2022-11-04 08:32] LABS: CREATININE 2.2 mg/dL (0.55-1.3); PHOSPHOROUS 2.8 mg/dL (2.5-4.9)
[2022-11-04] MEDS: CYANOCOBALAMIN 1,000 MCG TABLET (FP) PO SCH (09:27)
[2022-11-04] MEDS: SODIUM ZIRCONIUM CYCLOSILICATE (LOKELMA) 5 GM PACKET PO SCH (09:27)
[2022-11-04] MEDS: METOPROLOL TARTRATE 25 MG TABLET (FP) PO SCH ×2 (09:27→21:30)
[2022-11-04] MEDS: FINASTERIDE 5 MG TABLET (FP) PO SCH (09:28)
[2022-11-04] MEDS: ROSUVASTATIN CA 5 MG TABLET PO SCH (09:28)
[2022-11-04] MEDS: SERTRALINE HCL 50 MG TABLET (FP) PO SCH (09:28)
[2022-11-04] MEDS: predniSONE 20 MG TABLET (UD) PO SCH (09:28)
[2022-11-04] MEDS: MUPIROCIN CA 2% TOPICAL CREAM 15 GM TUBE TP SCH ×2 (09:29→21:31)
[2022-11-04] MEDS ORDERED: predniSONE 20 MG TABLET (UD) PO SCH (14:40)
[2022-11-04] MEDS: TRIAMCINOLONE ACET 0.1% OINT 15 GM TUBE TP SCH ×2 (15:16→21:31)
[2022-11-04] MEDS: MIRTAZAPINE 15 MG TABLET (FP) PO SCH (21:30)
[2022-11-04] MEDS: TETRAHYDROZOLINE HCL EYE DROPS OU PRN (23:13)
[2022-11-05] MEDS: diphenhydrAMINE HCL 25 MG CAPSULE (FP) PO PRN (01:18)
[2022-11-05] MEDS: GABAPENTIN 100 MG CAPSULE PO SCH ×3 (05:30→21:15)
[2022-11-05] MEDS: TRIAMCINOLONE ACET 0.1% OINT 15 GM TUBE TP SCH ×3 (05:30→21:15)
[2022-11-05] MEDS: HEPARIN NA (PORCINE) 5,000 UNITS/ML 1ML VIAL SQ SCH ×3 (05:30→21:15)
[2022-11-05] MEDS: ROSUVASTATIN CA 5 MG TABLET PO SCH (09:33)
[2022-11-05] MEDS: SERTRALINE HCL 50 MG TABLET (FP) PO SCH (09:33)
[2022-11-05] MEDS: FINASTERIDE 5 MG TABLET (FP) PO SCH (09:33)
[2022-11-05] MEDS: CYANOCOBALAMIN 1,000 MCG TABLET (FP) PO SCH (09:33)
[2022-11-05] MEDS: TAMSULOSIN HCL 0.4 MG CAP PO SCH (09:33)
[2022-11-05] MEDS: METOPROLOL TARTRATE 25 MG TABLET (FP) PO SCH ×2 (09:33→21:15)
[2022-11-05] MEDS: SODIUM ZIRCONIUM CYCLOSILICATE (LOKELMA) 5 GM PACKET PO SCH ×2 (09:34→11:51)
[2022-11-05 09:35] LABS: HEMATOCRIT 36.6 % (35.4-49); HEMOGLOBIN 12.4 GM/dL (11.7-16.9); MCH 28.9 pg (25.7-33.7); MCHC 33.8 g/dl (32.0-35.9); MEAN CELL VOLUME 85.3 fl (80-96); MEAN PLT VOLUME 9.2 fl (7.5-11.1); PLATELET COUNT 179 10^3/uL (134-434); RBC 4.29 M/mm3 (4.00-5.60); RDW 15.5 % (11.9-15.9); WHITE BLOOD COUNT 13.2 K/mm3 (4.0-10.0)
[2022-11-05 09:55] LABS: POTASSIUM 4.6 mmol/L (3.5-5.1)
[2022-11-05 10:00] LABS: CALCIUM 9.4 mg/dL (8.5-10.1)
[2022-11-05 10:01] LABS: BLOOD UREA NITROGEN 36.8 mg/dL (7-18); MAGNESIUM 1.9 mg/dL (1.8-2.4)
[2022-11-05 10:04] LABS: CREATININE 2.2 mg/dL (0.55-1.3)
[2022-11-05] MEDS: MUPIROCIN CA 2% TOPICAL CREAM 15 GM TUBE TP SCH ×2 (10:55→21:15)
[2022-11-05] MEDS ORDERED: methylPREDNISolone NA SUCC 125 MG/2 ML VIAL IVPUSH ONE (13:17)
[2022-11-05] MEDS: ALBUTEROL SO4 HFA INHALER IH PRN ×2 (14:48→21:25)
[2022-11-05] MEDS ORDERED: methylPREDNISolone NA SUCC 125 MG/2 ML VIAL IM ONE (16:01)
[2022-11-05] MEDS: MIRTAZAPINE 15 MG TABLET (FP) PO SCH (21:15)
[2022-11-05] MEDS: ACETAMINOPHEN 650 MG/20.3 ML ORAL SOLUTION (CUPS) PO PRN (21:21)
[2022-11-06] MEDS: GABAPENTIN 100 MG CAPSULE PO SCH (06:13)
[2022-11-06] MEDS: HEPARIN NA (PORCINE) 5,000 UNITS/ML 1ML VIAL SQ SCH (06:14)
[2022-11-06] MEDS: TRIAMCINOLONE ACET 0.1% OINT 15 GM TUBE TP SCH ×2 (06:14→13:02)
[2022-11-06] MEDS: TAMSULOSIN HCL 0.4 MG CAP PO SCH (08:53)
[2022-11-06] MEDS: SODIUM ZIRCONIUM CYCLOSILICATE (LOKELMA) 5 GM PACKET PO SCH ×2 (09:56→10:10)
[2022-11-06] MEDS: ROSUVASTATIN CA 5 MG TABLET PO SCH (10:02)
[2022-11-06] MEDS: SERTRALINE HCL 50 MG TABLET (FP) PO SCH (10:02)
[2022-11-06] MEDS: METOPROLOL TARTRATE 25 MG TABLET (FP) PO SCH (10:02)
[2022-11-06] MEDS: CYANOCOBALAMIN 1,000 MCG TABLET (FP) PO SCH (10:02)
[2022-11-06] MEDS: MUPIROCIN CA 2% TOPICAL CREAM 15 GM TUBE TP SCH ×2 (10:02→11:27)
[2022-11-06] MEDS: FINASTERIDE 5 MG TABLET (FP) PO SCH (10:02)
[2022-11-06 10:51] VITALS: BP 140/80; PULSE 80; TEMP 98.5
== END 2022-11-06 13:25 | DRG 603 ==
LOC: JER 11:23 → JERBED 17:11 → J5S 21:23
PROVIDERS: ADMIT Internal Medicine
DX: L03.115 Cellulitis of right lower limb (principal); L97.818 Non-pressure chronic ulcer of other part of right lower leg with other specified severity; I82.501 Chronic embolism and thrombosis of unspecified deep veins of right lower extremity; N40.0 Benign prostatic hyperplasia without lower urinary tract symptoms; E87.5 Hyperkalemia; R26.0 Ataxic gait; G62.9 Polyneuropathy, unspecified; E78.5 Hyperlipidemia, unspecified; I12.9 Hypertensive chronic kidney disease with stage 1 through stage 4 chronic kidney disease, or unspecified chronic kidney disease; N18.9 Chronic kidney disease, unspecified; M79.671 Pain in right foot; G25.81 Restless legs syndrome; J44.9 Chronic obstructive pulmonary disease, unspecified; F41.8 Other specified anxiety disorders; I73.9 Peripheral vascular disease, unspecified; L27.0 Generalized skin eruption due to drugs and medicaments taken internally; T36.8X5A Adverse effect of other systemic antibiotics, initial encounter; N28.1 Cyst of kidney, acquired
CPT/HCPCS: 36415; 73590-TC-RT-FY; 73630-TC-RT-FY; 76775-TC; 80048; 80053; 81003; 82607; 83540; 83550; 83735; 83880; 84100; 84132; 85025; 85027; 85651; 86140; 87081; 93005; 93010; 93971-TC; 97116-GP; 97161-GP; 99285-25; C9803-CS; J1644; U0003; U0005

== ENCOUNTER 2023-04-26 13:52 | Inpatient (IN) | payer OTHER, MEDICARE ==
[2023-04-26] MEDS ORDERED: ACETAMINOPHEN 325 MG TABLET (FP) ONE (15:10)
[2023-04-26] MEDS ORDERED: ACETAMINOPHEN 1000 MG/100 ML BAG IVPB ONE (15:17)
[2023-04-26] MEDS ORDERED: ACETAMINOPHEN INJECTION 100 ML IVPB ONE (15:27)
[2023-04-26 15:50] LABS: HEMATOCRIT 40.9 % (35.4-49); HEMOGLOBIN 13.3 GM/dL (11.7-16.9); MCHC 32.5 g/dl (32.0-35.9); MEAN PLT VOLUME 8.4 fl (7.5-11.1); PLATELET COUNT 150 10^3/uL (134-434); RBC 4.93 M/mm3 (4.00-5.60); WHITE BLOOD COUNT 13.1 K/mm3 (4.0-10.0)
[2023-04-26 16:07] LABS: CHLORIDE 103 mmol/L (98-107); POTASSIUM 4.2 mmol/L (3.5-5.1); SODIUM 140 mmol/L (136-145)
[2023-04-26 16:10] LABS: CALCIUM 8.3 mg/dL (8.5-10.1)
[2023-04-26 16:11] LABS: ALBUMIN 3.1 g/dl (3.4-5.0); ANION GAP 13 mmol/L (4-13); CO2 24 mmol/L (21-32); GLUCOSE,RANDOM 129 mg/dL (74-106)
[2023-04-26 16:13] LABS: SGPT/ALT 25 U/L (13-61)
[2023-04-26 16:14] LABS: CREATININE 2.4 mg/dL (0.55-1.3); SGOT/AST 66 U/L (15-37)
[2023-04-26 16:15] LABS: TOT PROT 7.1 g/dl (6.4-8.2)
[2023-04-26 16:16] LABS: ALK PHOS 93 U/L (45-117)
[2023-04-26 16:27] LABS: LACTIC ACID 2.9 mmol/L (0.4-2.0)
[2023-04-26 16:33] LABS: INR 1.31 (0.83-1.09); PROTHROMBIN TIME (PATIENT) 15.1 SEC (9.7-13.0)
[2023-04-26 16:36] LABS: ACTIVATED PTT 28.4 SECONDS (25.2-36.5)
[2023-04-26] MEDS ORDERED: CEFTRIAXONE 1,000 MG in DEXTROSE 5%-WATER - 50 ML IVPB ONE (16:47)
[2023-04-26 16:56] LABS: ANISOCYTOSIS 0; MACROCYTOSIS 0
[2023-04-26 16:57] LABS: PLATELET ESTIMATE SLT DECREASE
[2023-04-26] MEDS ORDERED: CEFTRIAXONE 1 GM/50 ML BAG ONE (17:12)
[2023-04-26] MEDS ORDERED: ASPIRIN 81 MG CHEWABLE TABLETS PO ONE (17:36)
[2023-04-26] MEDS ORDERED: ASPIRIN 81 MG CHEWABLE TABLETS ONE (18:16)
[2023-04-26 19:40] LABS: VENOUS BASE EXCESS 0.3 mmol/L (-2-2); VENOUS PH 7.364 (7.310-7.410)
[2023-04-26 20:17] LABS: EPI CELLS 9 /uL (0-25.1); HYALINE CASTS 5 /uL (0-3.1); PH,URINE 5.5 (5.0-8.0); URINE APPEARANCE CLOUDY; URINE BACTERIA >9,000 /uL (0-1359); URINE BILIRUBIN NEGATIVE (NEGATIVE); URINE COLOR YELLOW; URINE GLUCOSE (UA) NEGATIVE (NEGATIVE); URINE KETONE 1+ (NEGATIVE); URINE LEUK ESTERASE 2+ (NEGATIVE); URINE NITRITE POSITIVE (NEGATIVE); URINE PROTEIN 3+ (NEGATIVE); URINE RBC 29 /uL (0-23.9); URINE WBC 938 /uL (0-25.8)
[2023-04-26 21:41] LABS: YEAST NONE SEEN (NEGATIVE)
[2023-04-26 22:09] LABS: HEMATOCRIT 39.6 % (35.4-49); HEMOGLOBIN 12.6 GM/dL (11.7-16.9); MCHC 31.8 g/dl (32.0-35.9); MEAN CELL VOLUME 84.8 fl (80-96); MEAN PLT VOLUME 8.6 fl (7.5-11.1); PLATELET COUNT 138 10^3/uL (134-434); RBC 4.66 M/mm3 (4.00-5.60); WHITE BLOOD COUNT 11.1 K/mm3 (4.0-10.0)
[2023-04-26 22:39] LABS: CALCIUM 8.2 mg/dL (8.5-10.1)
[2023-04-26 22:43] LABS: CREATININE 2.4 mg/dL (0.55-1.3)
[2023-04-27] MEDS ORDERED: SODIUM CHLORIDE 1,000 ML IV SCH (00:30)
[2023-04-27] MEDS ORDERED: ACETAMINOPHEN 325 MG TABLET (FP) PO ONE (00:31)
[2023-04-27] MEDS ORDERED: ACETAMINOPHEN 325 MG TABLET (FP) ONE (00:32)
[2023-04-27] MEDS ORDERED: ACETAMINOPHEN 650 MG/20.3 ML ORAL SOLUTION (CUPS) ONE (00:34)
[2023-04-27] MEDS: METOPROLOL TARTRATE 25 MG TABLET (FP) PO SCH ×3 (01:19→21:56)
[2023-04-27] MEDS: HEPARIN NA (PORCINE) 5,000 UNITS/ML 1ML VIAL SQ SCH ×3 (05:47→21:56)
[2023-04-27] MEDS: GABAPENTIN 300 MG CAPSULE PO SCH ×3 (05:47→21:56)
[2023-04-27 08:04] LABS: HEMATOCRIT 37.6 % (35.4-49); MCH 26.8 pg (25.7-33.7); PLATELET COUNT 136 10^3/uL (134-434); RBC 4.47 M/mm3 (4.00-5.60); RDW 15.9 % (11.9-15.9); WHITE BLOOD COUNT 10.4 K/mm3 (4.0-10.0)
[2023-04-27] MEDS: TAMSULOSIN HCL 0.4 MG CAP PO SCH (08:09)
[2023-04-27 08:14] LABS: POTASSIUM 4.1 mmol/L (3.5-5.1)
[2023-04-27 08:22] LABS: ALBUMIN 2.6 g/dl (3.4-5.0)
[2023-04-27 08:23] LABS: CALCIUM 8.2 mg/dL (8.5-10.1)
[2023-04-27 08:24] LABS: BLOOD UREA NITROGEN 30.9 mg/dL (7-18); MAGNESIUM 2.2 mg/dL (1.8-2.4)
[2023-04-27 08:25] LABS: CREATININE 2.4 mg/dL (0.55-1.3); PHOSPHOROUS 2.3 mg/dL (2.5-4.9)
[2023-04-27 08:26] LABS: TOT PROT 6.2 g/dl (6.4-8.2)
[2023-04-27] MEDS ORDERED: ASPIRIN 81 MG CHEWABLE TABLETS PO SCH (10:00)
[2023-04-27] MEDS: SERTRALINE HCL 50 MG TABLET (FP) PO SCH (10:23)
[2023-04-27] MEDS: CEFTRIAXONE 1 GM in DEXTROSE 5%-WATER - 50 ML IVPB SCH (10:24)
[2023-04-27] MEDS: ROSUVASTATIN CA 10 MG TABLET PO SCH (21:56)
[2023-04-27] MEDS: MIRTAZAPINE 15 MG TABLET (FP) PO SCH (21:56)
[2023-04-28] MEDS: GABAPENTIN 300 MG CAPSULE PO SCH ×3 (05:58→22:03)
[2023-04-28] MEDS: HEPARIN NA (PORCINE) 5,000 UNITS/ML 1ML VIAL SQ SCH ×4 (05:59→22:03)
[2023-04-28] MEDS: TAMSULOSIN HCL 0.4 MG CAP PO SCH (09:17)
[2023-04-28] MEDS: CEFTRIAXONE 1 GM in DEXTROSE 5%-WATER - 50 ML IVPB SCH (09:51)
[2023-04-28] MEDS: METOPROLOL TARTRATE 25 MG TABLET (FP) PO SCH ×2 (09:52→22:03)
[2023-04-28] MEDS: SERTRALINE HCL 50 MG TABLET (FP) PO SCH (09:52)
[2023-04-28] MEDS ORDERED: ARTIFICIAL TEARS (POLYVINYL ALCOHOL) OPTH DROPS OU PRN (20:40)
[2023-04-28] MEDS: MIRTAZAPINE 15 MG TABLET (FP) PO SCH (22:03)
[2023-04-28] MEDS: ROSUVASTATIN CA 10 MG TABLET PO SCH (22:03)
[2023-04-29] MEDS: HEPARIN NA (PORCINE) 5,000 UNITS/ML 1ML VIAL SQ SCH ×3 (05:44→21:48)
[2023-04-29] MEDS: GABAPENTIN 300 MG CAPSULE PO SCH ×3 (05:44→21:47)
[2023-04-29] MEDS: TAMSULOSIN HCL 0.4 MG CAP PO SCH (07:51)
[2023-04-29 08:29] LABS: BASO % 0.3 % (0-2.0); EOS % 4.4 % (0-4.5); HEMATOCRIT 36.3 % (35.4-49); HEMOGLOBIN 12.1 GM/dL (11.7-16.9); LYMPH % 11.4 % (8-40); MCH 27.6 pg (25.7-33.7); MCHC 33.2 g/dl (32.0-35.9); MEAN CELL VOLUME 82.9 fl (80-96); MEAN PLT VOLUME 9.3 fl (7.5-11.1); NEUT % 71.9 % (42.8-82.8); PLATELET COUNT 139 10^3/uL (134-434); RBC 4.38 M/mm3 (4.00-5.60); RDW 16.4 % (11.9-15.9)
[2023-04-29 08:35] LABS: POTASSIUM 4.3 mmol/L (3.5-5.1)
[2023-04-29 08:57] LABS: ALBUMIN 2.4 g/dl (3.4-5.0); BLOOD UREA NITROGEN 31.9 mg/dL (7-18)
[2023-04-29 08:58] LABS: CALCIUM 8.1 mg/dL (8.5-10.1)
[2023-04-29 09:00] LABS: CREATININE 2.3 mg/dL (0.55-1.3); MAGNESIUM 2.3 mg/dL (1.8-2.4); PHOSPHOROUS 3.1 mg/dL (2.5-4.9)
[2023-04-29 09:01] LABS: BILIRUBIN,TOTAL 0.3 mg/dL (0.2-1); TOT PROT 6.1 g/dl (6.4-8.2)
[2023-04-29] MEDS: CEFTRIAXONE 1 GM in DEXTROSE 5%-WATER - 50 ML IVPB SCH (09:35)
[2023-04-29] MEDS: METOPROLOL TARTRATE 25 MG TABLET (FP) PO SCH ×2 (09:41→21:48)
[2023-04-29] MEDS: SERTRALINE HCL 50 MG TABLET (FP) PO SCH (09:41)
[2023-04-29] MEDS: PANTOPRAZOLE 40 MG TABLET PO SCH (16:53)
[2023-04-29] MEDS: MIRTAZAPINE 15 MG TABLET (FP) PO SCH (21:47)
[2023-04-29] MEDS: ROSUVASTATIN CA 10 MG TABLET PO SCH (21:48)
[2023-04-30] MEDS: GABAPENTIN 300 MG CAPSULE PO SCH ×3 (05:31→21:02)
[2023-04-30] MEDS: HEPARIN NA (PORCINE) 5,000 UNITS/ML 1ML VIAL SQ SCH ×3 (05:31→21:03)
[2023-04-30 07:21] LABS: BASO % 0.2 % (0-2.0); EOS % 4.9 % (0-4.5); HEMATOCRIT 36.3 % (35.4-49); HEMOGLOBIN 11.5 GM/dL (11.7-16.9); LYMPH % 13.2 % (8-40); MCH 26.9 pg (25.7-33.7); MCHC 31.7 g/dl (32.0-35.9); MEAN CELL VOLUME 84.9 fl (80-96); MEAN PLT VOLUME 9.1 fl (7.5-11.1); MONO % 10.1 % (3.8-10.2); NEUT % 71.6 % (42.8-82.8); PLATELET COUNT 141 10^3/uL (134-434); RBC 4.27 M/mm3 (4.00-5.60); RDW 16.1 % (11.9-15.9)
[2023-04-30] MEDS: TAMSULOSIN HCL 0.4 MG CAP PO SCH (07:53)
[2023-04-30 07:59] LABS: POTASSIUM 4.5 mmol/L (3.5-5.1)
[2023-04-30 08:02] LABS: ALBUMIN 2.4 g/dl (3.4-5.0); MAGNESIUM 2.3 mg/dL (1.8-2.4)
[2023-04-30 08:05] LABS: CREATININE 2.2 mg/dL (0.55-1.3); PHOSPHOROUS 3.2 mg/dL (2.5-4.9)
[2023-04-30 08:07] LABS: BILIRUBIN,TOTAL 0.3 mg/dL (0.2-1); TOT PROT 6.1 g/dl (6.4-8.2)
[2023-04-30] MEDS: CEFTRIAXONE 1 GM in DEXTROSE 5%-WATER - 50 ML IVPB SCH (09:01)
[2023-04-30] MEDS: SERTRALINE HCL 50 MG TABLET (FP) PO SCH (10:38)
[2023-04-30] MEDS: PANTOPRAZOLE 40 MG TABLET PO SCH (10:38)
[2023-04-30] MEDS: METOPROLOL TARTRATE 25 MG TABLET (FP) PO SCH ×2 (10:38→21:02)
[2023-04-30 17:07] VITALS: BMI 24.3
[2023-04-30] MEDS: ROSUVASTATIN CA 10 MG TABLET PO SCH (21:01)
[2023-04-30] MEDS: MIRTAZAPINE 15 MG TABLET (FP) PO SCH (21:02)
[2023-05-01] MEDS: GABAPENTIN 300 MG CAPSULE PO SCH ×3 (05:11→22:13)
[2023-05-01] MEDS: HEPARIN NA (PORCINE) 5,000 UNITS/ML 1ML VIAL SQ SCH ×3 (05:11→22:14)
[2023-05-01] MEDS: TAMSULOSIN HCL 0.4 MG CAP PO SCH (09:30)
[2023-05-01] MEDS: PANTOPRAZOLE 40 MG TABLET PO SCH (09:45)
[2023-05-01] MEDS: ALBUTEROL SO4 HFA INHALER IH PRN (09:45)
[2023-05-01] MEDS: SERTRALINE HCL 50 MG TABLET (FP) PO SCH (09:45)
[2023-05-01] MEDS: METOPROLOL TARTRATE 25 MG TABLET (FP) PO SCH ×2 (09:46→22:14)
[2023-05-01] MEDS: CEFTRIAXONE 1 GM in DEXTROSE 5%-WATER - 50 ML IVPB SCH (09:46)
[2023-05-01 11:22] LABS: BASO % 0.2 % (0-2.0); EOS % 1.6 % (0-4.5); HEMATOCRIT 37.8 % (35.4-49); LYMPH % 10.9 % (8-40); MCH 26.8 pg (25.7-33.7); MCHC 31.6 g/dl (32.0-35.9); MEAN CELL VOLUME 84.9 fl (80-96); MEAN PLT VOLUME 9.1 fl (7.5-11.1); MONO % 7.8 % (3.8-10.2); NEUT % 79.5 % (42.8-82.8); PLATELET COUNT 176 10^3/uL (134-434); RBC 4.46 M/mm3 (4.00-5.60); WHITE BLOOD COUNT 7.7 K/mm3 (4.0-10.0)
[2023-05-01 11:45] LABS: POTASSIUM 4.9 mmol/L (3.5-5.1)
[2023-05-01 11:48] LABS: ALBUMIN 2.7 g/dl (3.4-5.0); BLOOD UREA NITROGEN 20.7 mg/dL (7-18); CALCIUM 8.7 mg/dL (8.5-10.1); MAGNESIUM 2.2 mg/dL (1.8-2.4)
[2023-05-01 11:51] LABS: CREATININE 2.1 mg/dL (0.55-1.3)
[2023-05-01 11:53] LABS: BILIRUBIN,TOTAL 0.3 mg/dL (0.2-1); TOT PROT 6.8 g/dl (6.4-8.2)
[2023-05-01] MEDS: guaiFENesin 200 MG/10 ML 10 ML UNIT-DOSE CUPS PO PRN (17:59)
[2023-05-01] MEDS ORDERED: REMDESIVIR 200 MG in SODIUM CHLORIDE 250 ML IVPB ONE (20:00)
[2023-05-01] MEDS ORDERED: ACETAMINOPHEN 1000 MG/100 ML BAG IVPB PRN (21:29)
[2023-05-01] MEDS: MIRTAZAPINE 15 MG TABLET (FP) PO SCH (22:13)
[2023-05-01] MEDS: ROSUVASTATIN CA 10 MG TABLET PO SCH (22:13)
[2023-05-01] MEDS: DEXAMETHASONE SOD PHOSPHATE 10 MG/1 ML VIAL IVPUSH SCH (22:15)
[2023-05-02] MEDS: GABAPENTIN 300 MG CAPSULE PO SCH ×3 (06:27→21:50)
[2023-05-02] MEDS: HEPARIN NA (PORCINE) 5,000 UNITS/ML 1ML VIAL SQ SCH ×3 (06:27→21:51)
[2023-05-02 08:29] LABS: CHLORIDE 111 mmol/L (98-107); HEMATOCRIT 38.8 % (35.4-49); HEMOGLOBIN 12.3 GM/dL (11.7-16.9); MCH 26.9 pg (25.7-33.7); MCHC 31.7 g/dl (32.0-35.9); MEAN CELL VOLUME 84.9 fl (80-96); PLATELET COUNT 174 10^3/uL (134-434); RBC 4.56 M/mm3 (4.00-5.60); RDW 15.9 % (11.9-15.9); SODIUM 138 mmol/L (136-145)
[2023-05-02 08:31] LABS: CALCIUM 8.8 mg/dL (8.5-10.1)
[2023-05-02 08:32] LABS: ALBUMIN 2.6 g/dl (3.4-5.0); BLOOD UREA NITROGEN 22.5 mg/dL (7-18); CO2 29 mmol/L (21-32); GLUCOSE,RANDOM 180 mg/dL (74-106); MAGNESIUM 2.4 mg/dL (1.8-2.4)
[2023-05-02 08:35] LABS: CREATININE 2.3 mg/dL (0.55-1.3); SGOT/AST 32 U/L (15-37); SGPT/ALT 56 U/L (13-61)
[2023-05-02 08:36] LABS: BILIRUBIN,TOTAL 0.4 mg/dL (0.2-1); TOT PROT 6.9 g/dl (6.4-8.2)
[2023-05-02 08:38] LABS: ALK PHOS 123 U/L (45-117)
[2023-05-02 08:50] LABS: ANION GAP -2 mmol/L (4-13); POTASSIUM 6.3 mmol/L (3.5-5.1)
[2023-05-02] MEDS: SERTRALINE HCL 50 MG TABLET (FP) PO SCH (09:25)
[2023-05-02] MEDS: PANTOPRAZOLE 40 MG TABLET PO SCH (09:25)
[2023-05-02] MEDS: TAMSULOSIN HCL 0.4 MG CAP PO SCH (09:25)
[2023-05-02] MEDS: METOPROLOL TARTRATE 25 MG TABLET (FP) PO SCH ×2 (09:25→21:51)
[2023-05-02] MEDS: DEXAMETHASONE SOD PHOSPHATE 10 MG/1 ML VIAL IVPUSH SCH (09:26)
[2023-05-02] MEDS: CEFTRIAXONE 1 GM in DEXTROSE 5%-WATER - 50 ML IVPB SCH (09:26)
[2023-05-02 10:00] LABS: ANISOCYTOSIS 2+; MACROCYTOSIS 0; OVALOCYTE 1+
[2023-05-02] MEDS ORDERED: SODIUM ZIRCONIUM CYCLOSILICATE (LOKELMA) 5 GM PACKET PO ONE (11:00)
[2023-05-02] MEDS ORDERED: CALCIUM GLUC IN NACL, ISO-OSM 1 GM/50 ML BAG IVPB ONE (11:00)
[2023-05-02] MEDS ORDERED: INSULIN REGULAR HUMAN 100 UNITS/ML *VIAL IVPUSH ONE (11:00)
[2023-05-02] MEDS ORDERED: DEXTROSE 50%-WATER 25 GM/50 ML DISP.SYRIN IVPUSH ONE (11:00)
[2023-05-02 16:22] LABS: CALCIUM 8.5 mg/dL (8.5-10.1)
[2023-05-02 16:23] LABS: BLOOD UREA NITROGEN 26.7 mg/dL (7-18)
[2023-05-02 16:26] LABS: CREATININE 2.2 mg/dL (0.55-1.3)
[2023-05-02] MEDS: REMDESIVIR 100 MG in SODIUM CHLORIDE 250 ML IVPB SCH (17:15)
[2023-05-02] MEDS: guaiFENesin 200 MG/10 ML 10 ML UNIT-DOSE CUPS PO PRN (17:18)
[2023-05-02] MEDS: ROSUVASTATIN CA 10 MG TABLET PO SCH (21:50)
[2023-05-02] MEDS: MIRTAZAPINE 15 MG TABLET (FP) PO SCH (21:50)
[2023-05-03] MEDS: HEPARIN NA (PORCINE) 5,000 UNITS/ML 1ML VIAL SQ SCH ×3 (06:04→21:24)
[2023-05-03] MEDS: GABAPENTIN 300 MG CAPSULE PO SCH ×3 (06:05→21:24)
[2023-05-03 07:34] LABS: HEMATOCRIT 36.2 % (35.4-49); HEMOGLOBIN 11.5 GM/dL (11.7-16.9); MCH 26.9 pg (25.7-33.7); MCHC 31.7 g/dl (32.0-35.9); MEAN CELL VOLUME 84.9 fl (80-96); MEAN PLT VOLUME 9.1 fl (7.5-11.1); PLATELET COUNT 204 10^3/uL (134-434); RBC 4.27 M/mm3 (4.00-5.60); RDW 16.3 % (11.9-15.9); WHITE BLOOD COUNT 9.8 K/mm3 (4.0-10.0)
[2023-05-03 07:53] LABS: POTASSIUM 4.8 mmol/L (3.5-5.1)
[2023-05-03 08:02] LABS: ALBUMIN 2.5 g/dl (3.4-5.0); BLOOD UREA NITROGEN 29.6 mg/dL (7-18); PHOSPHOROUS 4.4 mg/dL (2.5-4.9)
[2023-05-03 08:03] LABS: BILIRUBIN,TOTAL 0.2 mg/dL (0.2-1); CALCIUM 8.4 mg/dL (8.5-10.1); TOT PROT 6.2 g/dl (6.4-8.2)
[2023-05-03] MEDS: TAMSULOSIN HCL 0.4 MG CAP PO SCH ×2 (08:03→09:40)
[2023-05-03 08:04] LABS: MAGNESIUM 2.5 mg/dL (1.8-2.4)
[2023-05-03 08:05] LABS: CREATININE 2.1 mg/dL (0.55-1.3)
[2023-05-03] MEDS: DEXAMETHASONE SOD PHOSPHATE 10 MG/1 ML VIAL IVPUSH SCH (09:10)
[2023-05-03] MEDS: CEFTRIAXONE 1 GM in DEXTROSE 5%-WATER - 50 ML IVPB SCH (09:11)
[2023-05-03 10:12] LABS: ANISOCYTOSIS 2+; MACROCYTOSIS 0
[2023-05-03] MEDS: METOPROLOL TARTRATE 25 MG TABLET (FP) PO SCH ×2 (10:23→21:24)
[2023-05-03] MEDS: SERTRALINE HCL 50 MG TABLET (FP) PO SCH (10:23)
[2023-05-03] MEDS: PANTOPRAZOLE 40 MG TABLET PO SCH (10:23)
[2023-05-03] MEDS: guaiFENesin 200 MG/10 ML 10 ML UNIT-DOSE CUPS PO PRN ×2 (11:03→17:12)
[2023-05-03] MEDS: ALBUTEROL SO4 HFA INHALER IH PRN (13:37)
[2023-05-03] MEDS: REMDESIVIR 100 MG in SODIUM CHLORIDE 250 ML IVPB SCH (17:12)
[2023-05-03] MEDS: MIRTAZAPINE 15 MG TABLET (FP) PO SCH (21:24)
[2023-05-03] MEDS: ROSUVASTATIN CA 10 MG TABLET PO SCH (21:24)
[2023-05-04] MEDS: GABAPENTIN 300 MG CAPSULE PO SCH ×3 (06:47→21:19)
[2023-05-04 07:05] LABS: HEMATOCRIT 37.9 % (35.4-49); HEMOGLOBIN 11.8 GM/dL (11.7-16.9); MCH 26.8 pg (25.7-33.7); MCHC 31.2 g/dl (32.0-35.9); MEAN PLT VOLUME 9.1 fl (7.5-11.1); PLATELET COUNT 237 10^3/uL (134-434); RDW 16.7 % (11.9-15.9)
[2023-05-04 07:23] LABS: CALCIUM 8.4 mg/dL (8.5-10.1)
[2023-05-04 07:24] LABS: ALBUMIN 2.5 g/dl (3.4-5.0); BLOOD UREA NITROGEN 31.2 mg/dL (7-18); MAGNESIUM 2.3 mg/dL (1.8-2.4)
[2023-05-04 07:26] LABS: CREATININE 2.1 mg/dL (0.55-1.3); PHOSPHOROUS 3.9 mg/dL (2.5-4.9)
[2023-05-04 07:28] LABS: BILIRUBIN,TOTAL 0.2 mg/dL (0.2-1); TOT PROT 6.5 g/dl (6.4-8.2)
[2023-05-04 09:52] LABS: ANISOCYTOSIS 3+; MACROCYTOSIS 1+
[2023-05-04] MEDS: CEFTRIAXONE 1 GM in DEXTROSE 5%-WATER - 50 ML IVPB SCH (10:44)
[2023-05-04] MEDS: DEXAMETHASONE SOD PHOSPHATE 10 MG/1 ML VIAL IVPUSH SCH (10:44)
[2023-05-04] MEDS: METOPROLOL TARTRATE 25 MG TABLET (FP) PO SCH ×2 (10:45→21:19)
[2023-05-04] MEDS: PANTOPRAZOLE 40 MG TABLET PO SCH (10:45)
[2023-05-04] MEDS: TAMSULOSIN HCL 0.4 MG CAP PO SCH (10:45)
[2023-05-04] MEDS: SERTRALINE HCL 50 MG TABLET (FP) PO SCH (10:45)
[2023-05-04] MEDS: REMDESIVIR 100 MG in SODIUM CHLORIDE 250 ML IVPB SCH (17:14)
[2023-05-04] MEDS ORDERED: ACETAMINOPHEN 1000 MG/100 ML BAG IVPB PRN (19:03)
[2023-05-04] MEDS: MIRTAZAPINE 15 MG TABLET (FP) PO SCH (21:18)
[2023-05-04] MEDS: ROSUVASTATIN CA 10 MG TABLET PO SCH (21:19)
[2023-05-05] MEDS: GABAPENTIN 300 MG CAPSULE PO SCH ×3 (06:01→22:14)
[2023-05-05] MEDS: TAMSULOSIN HCL 0.4 MG CAP PO SCH (10:02)
[2023-05-05 10:10] LABS: HEMATOCRIT 39.7 % (35.4-49); HEMOGLOBIN 12.5 GM/dL (11.7-16.9); MCH 26.9 pg (25.7-33.7); MCHC 31.5 g/dl (32.0-35.9); MEAN CELL VOLUME 85.4 fl (80-96); MEAN PLT VOLUME 8.8 fl (7.5-11.1); PLATELET COUNT 266 10^3/uL (134-434); RBC 4.65 M/mm3 (4.00-5.60); WHITE BLOOD COUNT 10.3 K/mm3 (4.0-10.0)
[2023-05-05 10:25] LABS: POTASSIUM 4.7 mmol/L (3.5-5.1)
[2023-05-05 10:31] LABS: BLOOD UREA NITROGEN 29.4 mg/dL (7-18); CALCIUM 8.4 mg/dL (8.5-10.1); MAGNESIUM 2.3 mg/dL (1.8-2.4)
[2023-05-05 10:32] LABS: ALBUMIN 2.8 g/dl (3.4-5.0)
[2023-05-05 10:34] LABS: PHOSPHOROUS 3.9 mg/dL (2.5-4.9)
[2023-05-05 10:36] LABS: BILIRUBIN,TOTAL 0.4 mg/dL (0.2-1); TOT PROT 6.9 g/dl (6.4-8.2)
[2023-05-05] MEDS: SERTRALINE HCL 50 MG TABLET (FP) PO SCH (11:36)
[2023-05-05] MEDS: CEFTRIAXONE 1 GM in DEXTROSE 5%-WATER - 50 ML IVPB SCH (11:36)
[2023-05-05] MEDS: PANTOPRAZOLE 40 MG TABLET PO SCH (11:36)
[2023-05-05] MEDS: METOPROLOL TARTRATE 25 MG TABLET (FP) PO SCH ×2 (11:37→22:14)
[2023-05-05] MEDS: DEXAMETHASONE SOD PHOSPHATE 10 MG/1 ML VIAL IVPUSH SCH (11:37)
[2023-05-05] MEDS: REMDESIVIR 100 MG in SODIUM CHLORIDE 250 ML IVPB SCH (18:17)
[2023-05-05] MEDS: HEPARIN NA (PORCINE) 5,000 UNITS/ML 1ML VIAL SQ SCH (22:13)
[2023-05-05] MEDS: MIRTAZAPINE 15 MG TABLET (FP) PO SCH (22:14)
[2023-05-05] MEDS: ROSUVASTATIN CA 10 MG TABLET PO SCH (22:14)
[2023-05-06] MEDS: HEPARIN NA (PORCINE) 5,000 UNITS/ML 1ML VIAL SQ SCH ×3 (05:29→22:42)
[2023-05-06] MEDS: GABAPENTIN 300 MG CAPSULE PO SCH ×3 (05:29→22:42)
[2023-05-06 07:48] LABS: HEMATOCRIT 38.3 % (35.4-49); HEMOGLOBIN 12.1 GM/dL (11.7-16.9); MCH 26.9 pg (25.7-33.7); MCHC 31.5 g/dl (32.0-35.9); MEAN CELL VOLUME 85.2 fl (80-96); MEAN PLT VOLUME 8.8 fl (7.5-11.1); PLATELET COUNT 272 10^3/uL (134-434); RBC 4.49 M/mm3 (4.00-5.60); WHITE BLOOD COUNT 11.9 K/mm3 (4.0-10.0)
[2023-05-06 08:04] LABS: POTASSIUM 5.1 mmol/L (3.5-5.1)
[2023-05-06 08:06] LABS: CALCIUM 8.5 mg/dL (8.5-10.1)
[2023-05-06 08:07] LABS: ALBUMIN 2.7 g/dl (3.4-5.0); BLOOD UREA NITROGEN 33.2 mg/dL (7-18); MAGNESIUM 2.4 mg/dL (1.8-2.4)
[2023-05-06 08:10] LABS: CREATININE 1.9 mg/dL (0.55-1.3); PHOSPHOROUS 3.7 mg/dL (2.5-4.9)
[2023-05-06 08:11] LABS: TOT PROT 6.7 g/dl (6.4-8.2)
[2023-05-06 08:12] LABS: BILIRUBIN,TOTAL 0.2 mg/dL (0.2-1)
[2023-05-06 09:13] LABS: ANISOCYTOSIS 0; MACROCYTOSIS 0
[2023-05-06] MEDS: TAMSULOSIN HCL 0.4 MG CAP PO SCH (10:36)
[2023-05-06] MEDS: DEXAMETHASONE SOD PHOSPHATE 10 MG/1 ML VIAL IVPUSH SCH (10:36)
[2023-05-06] MEDS: PANTOPRAZOLE 40 MG TABLET PO SCH (10:36)
[2023-05-06] MEDS: SERTRALINE HCL 50 MG TABLET (FP) PO SCH (10:36)
[2023-05-06] MEDS: METOPROLOL TARTRATE 25 MG TABLET (FP) PO SCH ×2 (10:36→22:42)
[2023-05-06] MEDS: CEFTRIAXONE 1 GM in DEXTROSE 5%-WATER - 50 ML IVPB SCH (10:36)
[2023-05-06] MEDS ORDERED: ACETAMINOPHEN 325 MG TABLET (FP) PO ONE (13:08)
[2023-05-06 15:20] LABS: INR 1.03 (0.83-1.09); PROTHROMBIN TIME (PATIENT) 11.9 SEC (9.7-13.0)
[2023-05-06 15:22] LABS: ACTIVATED PTT 27.3 SECONDS (25.2-36.5)
[2023-05-06] MEDS: MIRTAZAPINE 15 MG TABLET (FP) PO SCH (22:42)
[2023-05-06] MEDS: ROSUVASTATIN CA 10 MG TABLET PO SCH (22:42)
[2023-05-06 23:00] VITALS: TEMP 97.8
[2023-05-07 06:44] VITALS: RESP 18
[2023-05-07] MEDS: HEPARIN NA (PORCINE) 5,000 UNITS/ML 1ML VIAL SQ SCH (06:50)
[2023-05-07] MEDS: GABAPENTIN 300 MG CAPSULE PO SCH (06:50)
[2023-05-07 09:13] LABS: HEMATOCRIT 37.5 % (35.4-49); HEMOGLOBIN 11.9 GM/dL (11.7-16.9); MCH 26.8 pg (25.7-33.7); MCHC 31.6 g/dl (32.0-35.9); MEAN CELL VOLUME 84.9 fl (80-96); MEAN PLT VOLUME 8.7 fl (7.5-11.1); PLATELET COUNT 237 10^3/uL (134-434); RBC 4.42 M/mm3 (4.00-5.60); RDW 16.2 % (11.9-15.9); WHITE BLOOD COUNT 10.9 K/mm3 (4.0-10.0)
[2023-05-07] MEDS: SERTRALINE HCL 50 MG TABLET (FP) PO SCH (09:18)
[2023-05-07] MEDS: TAMSULOSIN HCL 0.4 MG CAP PO SCH (09:18)
[2023-05-07] MEDS: DEXAMETHASONE SOD PHOSPHATE 10 MG/1 ML VIAL IVPUSH SCH (09:18)
[2023-05-07] MEDS: PANTOPRAZOLE 40 MG TABLET PO SCH (09:18)
[2023-05-07] MEDS: METOPROLOL TARTRATE 25 MG TABLET (FP) PO SCH (09:18)
[2023-05-07] MEDS: CEFTRIAXONE 1 GM in DEXTROSE 5%-WATER - 50 ML IVPB SCH (09:19)
[2023-05-07 09:41] LABS: ALBUMIN 2.7 g/dl (3.4-5.0); CALCIUM 8.7 mg/dL (8.5-10.1); MAGNESIUM 2.3 mg/dL (1.8-2.4)
[2023-05-07 09:44] LABS: PHOSPHOROUS 3.9 mg/dL (2.5-4.9)
[2023-05-07 09:45] LABS: BILIRUBIN,TOTAL 0.3 mg/dL (0.2-1)
[2023-05-07 10:14] LABS: ANISOCYTOSIS 0; MACROCYTOSIS 0
[2023-05-07 11:24] VITALS: BP 136/69; PULSE 51
== END 2023-05-07 13:37 | disposition home or self-care (01) | DRG 871 ==
LOC: JER 13:52 → JERBED 16:55 → J4W 04-27 03:19 → J4S 05-04 19:13
PROVIDERS: ADMIT Internal Medicine; ATTEND Internal Medicine
PROC: XW033E5 Introduction of Remdesivir Anti-infective into Peripheral Vein, Percutaneous Approach, New Technology Group 5 (ICD-10-PCS; principal; 2023-05-02)
DX: A41.59 Other Gram-negative sepsis (principal); I21.A1 Myocardial infarction type 2; J96.01 Acute respiratory failure with hypoxia; U07.1 COVID-19; K51.90 Ulcerative colitis, unspecified, without complications; N39.0 Urinary tract infection, site not specified; N17.9 Acute kidney failure, unspecified; J98.11 Atelectasis; J90 Pleural effusion, not elsewhere classified; I31.39 Other pericardial effusion (noninflammatory); M62.82 Rhabdomyolysis; I24.89 Other forms of acute ischemic heart disease; I12.9 Hypertensive chronic kidney disease with stage 1 through stage 4 chronic kidney disease, or unspecified chronic kidney disease; N18.9 Chronic kidney disease, unspecified; E78.5 Hyperlipidemia, unspecified; N40.0 Benign prostatic hyperplasia without lower urinary tract symptoms; I49.3 Ventricular premature depolarization; K22.2 Esophageal obstruction; E87.5 Hyperkalemia
CPT/HCPCS: 0241U-QW; 36415; 71045-TC-FY; 74176-TC; 74220-TC-FY; 74240-TC-FY; 76775-TC; 80048; 80053; 80061; 81003; 82378; 82550; 82553; 82803; 83605; 83735; 83993; 84100; 84439; 84443; 84481; 84484; 85025; 85027; 85610; 85730; 86140; 87040; 87086; 87186; 87324; 87449; 93005; 93010; 93306-TC; 94010; 97116-GP; 97162-GP; 99285-25; J0248; J1100; J1644

== ENCOUNTER 2024-02-28 11:48 | Emergency (ER) | payer OTHER, MEDICARE ==
[2024-02-28 12:12] VITALS: BP 143/77; PULSE 55; RESP 16; TEMP 98.6; BMI 24.7
[2024-02-28 13:19] LABS: BASO % 1.2 % (0-2.0); EOS % 2.4 % (0-4.5); HEMATOCRIT 40.4 % (35.4-49); HEMOGLOBIN 13.3 GM/dL (11.7-16.9); LYMPH % 16.8 % (8-40); MCH 28.7 pg (25.7-33.7); MCHC 32.9 g/dl (32.0-35.9); MEAN CELL VOLUME 87.1 fl (80-96); MONO % 8.9 % (3.8-10.2); NEUT % 70.7 % (42.8-82.8); PLATELET COUNT 170 10^3/uL (134-434); RBC 4.64 M/mm3 (4.00-5.60); WHITE BLOOD COUNT 8.7 K/mm3 (4.0-10.0)
[2024-02-28 13:26] LABS: INR 1.1 (0.83-1.09); PROTHROMBIN TIME (PATIENT) 12.4 SEC (9.7-13.0)
[2024-02-28 13:29] LABS: ACTIVATED PTT 28.1 SECONDS (25.2-36.5)
[2024-02-28 13:45] LABS: POTASSIUM 4.1 mmol/L (3.5-5.1)
[2024-02-28 13:46] LABS: CALCIUM 8.9 mg/dL (8.5-10.1)
[2024-02-28 13:47] LABS: ALBUMIN 3.6 g/dl (3.4-5.0); BLOOD UREA NITROGEN 13.5 mg/dL (7-18)
[2024-02-28 13:50] LABS: CREATININE 1.9 mg/dL (0.55-1.3)
[2024-02-28 13:52] LABS: BILIRUBIN,TOTAL 0.7 mg/dL (0.2-1); TOT PROT 7.4 g/dl (6.4-8.2)
[2024-02-28 14:35] LABS: HIV INTERPRETATION NEGATIVE (NEGATIVE)
[2024-02-28 19:43] LABS: EPI CELLS 0 /uL (0-25.1); HYALINE CASTS 0 /uL (0-3.1); URINE APPEARANCE CLEAR; URINE BACTERIA 6695 /uL (0-1359); URINE BILIRUBIN NEGATIVE (NEGATIVE); URINE COLOR YELLOW; URINE GLUCOSE (UA) NEGATIVE (NEGATIVE); URINE KETONE NEGATIVE (NEGATIVE); URINE LEUK ESTERASE 1+ (NEGATIVE); URINE NITRITE NEGATIVE (NEGATIVE); URINE PROTEIN 2+ (NEGATIVE); URINE UROBILINOGEN 0.2 mg/dL (0.2-1.0); URINE WBC 138 /uL (0-25.8)
[2024-02-28] MEDS ORDERED: CEPHALEXIN MONOHYDRATE 500 MG CAPSULE (UD) PO ONE (19:47)
[2024-02-28 20:02] LABS: URINE RBC 43.2 /uL (0-23.9)
[2024-02-28] MEDS ORDERED: SULFAMETHOXAZOLE/TRIMETHOPRIM 800MG/160MG D.S. TABLET ONE (20:03)
[2024-02-28] MEDS: SULFAMETHOXAZOLE/TRIMETHOPRIM 800MG/160MG D.S. TABLET PO ONE (20:20)
== END 2024-02-28 20:34 | disposition home or self-care (01) ==
LOC: JER 11:48
DX: K52.9 Noninfective gastroenteritis and colitis, unspecified (principal); R10.9 Unspecified abdominal pain; Z20.822 Contact with and (suspected) exposure to COVID-19
CPT/HCPCS: 0241U-QW; 36415; 74176-TC; 80053; 81003; 82272; 85025; 85610; 85730; 86803; 86850; 86900; 86901; 87086; 87389; 99284-25

== ENCOUNTER 2024-04-21 20:27 | Inpatient (IN) | payer OTHER, MEDICARE ==
[2024-04-21] MEDS ORDERED: ACETAMINOPHEN INJECTION 100 ML ONE (20:55)
[2024-04-21] MEDS: ACETAMINOPHEN 1000 MG/100 ML BAG IVPB ONE (21:10)
[2024-04-21 21:39] LABS: HEMOGLOBIN 13.3 G/dL (11.7-16.9); MCH 29.4 pg (25.7-33.7); MCHC 33.3 g/dl (32.0-35.9); MEAN CELL VOLUME 88.3 fl (80-96); MEAN PLT VOLUME 8.5 fl (7.5-11.1); PLATELET COUNT 180.2 10^3/uL (134-434); RBC 4.53 10^6/uL (4.00-5.60); RDW 14.1 % (11.9-15.9); WHITE BLOOD COUNT 14.4 10^3/uL (4.0-10.8)
[2024-04-21] MEDS ORDERED: cefTRIAXone SODIUM 1 GM VIAL ONE (21:56)
[2024-04-21 22:01] LABS: ALBUMIN 4.1 g/dl (3.4-5.0); BILIRUBIN,TOTAL 1.1 mg/dl (0.2-1); CALCIUM 9.3 mg/dl (8.5-10.1); POTASSIUM 4.7 mmol/L (3.5-5.1); TOT PROT 7.5 g/dl (6.4-8.2)
[2024-04-21] MEDS: CEFTRIAXONE 1 GM in DEXTROSE 5%-WATER - 50 ML IVPB ONE (22:03)
[2024-04-22] MEDS: ZOLPIDEM TARTRATE 5 MG TABLET PO ONE (00:49)
[2024-04-22] MEDS: GABAPENTIN 300 MG CAPSULE PO SCH (06:21)
[2024-04-22 07:01] LABS: HEMATOCRIT 33.7 % (35.4-49); MCH 28.4 pg (25.7-33.7); MCHC 32.6 g/dl (32.0-35.9); MEAN CELL VOLUME 86.9 fl (80-96); MEAN PLT VOLUME 7.9 fl (7.5-11.1); PLATELET COUNT 175 10^3/uL (134-434); RBC 3.88 M/mm3 (4.00-5.60); RDW 13.7 % (11.9-15.9); WHITE BLOOD COUNT 13.3 K/mm3 (4.0-10.0)
[2024-04-22 07:20] LABS: POTASSIUM 4.9 mmol/L (3.5-5.1)
[2024-04-22 07:21] LABS: CALCIUM 8.5 mg/dL (8.5-10.1)
[2024-04-22 07:22] LABS: BLOOD UREA NITROGEN 22.4 mg/dL (7-18); MAGNESIUM 1.9 mg/dL (1.8-2.4)
[2024-04-22 07:25] LABS: CREATININE 1.9 mg/dL (0.55-1.3)
[2024-04-22 07:26] LABS: PHOSPHOROUS 2.3 mg/dL (2.5-4.9)
[2024-04-22] MEDS: oxyCODONE HCL 5 MG TABLET PO PRN (07:48)
[2024-04-22] MEDS: CARBIDOPA PO SCH (08:40)
[2024-04-22] MEDS: LEVODOPA PO SCH (08:40)
[2024-04-22] MEDS: SERTRALINE HCL 50 MG TABLET (FP) PO SCH (09:03)
[2024-04-22] MEDS: FINASTERIDE 5 MG TABLET (FP) PO SCH (09:04)
[2024-04-22] MEDS: METOPROLOL TARTRATE 25 MG TABLET (FP) PO SCH ×2 (09:05→21:38)
[2024-04-22] MEDS: ENOXAPARIN NA (PORCINE) 40 MG/0.4 ML DISP.SYRIN SQ SCH (09:07)
[2024-04-22] MEDS: PANTOPRAZOLE 40 MG TABLET PO SCH (09:21)
[2024-04-22] MEDS: SODIUM CHLORIDE 1,000 ML IV SCH (14:00)
[2024-04-22 16:05] VITALS: BMI 24.0
[2024-04-22] MEDS: SODIUM CHLORIDE 0.9% 500 ML INFUS.BAG IV ONE (19:17)
[2024-04-22] MEDS: CEFTRIAXONE 1 GM in DEXTROSE 5%-WATER - 50 ML IVPB SCH (21:36)
[2024-04-22] MEDS: MIRTAZAPINE 15 MG TABLET (FP) PO SCH (21:37)
[2024-04-22] MEDS: ROSUVASTATIN CA 5 MG TABLET PO SCH (21:37)
[2024-04-22] MEDS: TAMSULOSIN HCL 0.4 MG CAP PO SCH (21:37)
[2024-04-22] MEDS: MELATONIN 1 MG TABLET PO SCH (21:38)
[2024-04-22] MEDS ORDERED: CEFTRIAXONE 1 GM in DEXTROSE 5%-WATER - 50 ML IVPB ONE (22:00)
[2024-04-23 02:05] VITALS: RESP 18
[2024-04-23 09:37] LABS: ALBUMIN 2.9 g/dl (3.4-5.0); BILIRUBIN,TOTAL 0.3 mg/dl (0.2-1); POTASSIUM 4.3 mmol/L (3.5-5.1); TOT PROT 5.4 g/dl (6.4-8.2)
[2024-04-23 10:48] LABS: BASO % 0.2 % (0-2.0); EOS % 2.3 % (0-4.5); HEMATOCRIT 30.7 % (35.4-49); HEMOGLOBIN 10.2 GM/dL (11.7-16.9); LYMPH % 15.9 % (8-40); MCH 29.1 pg (25.7-33.7); MCHC 33.2 g/dl (32.0-35.9); MEAN CELL VOLUME 87.5 fl (80-96); MEAN PLT VOLUME 8.2 fl (7.5-11.1); MONO % 10.1 % (3.8-10.2); NEUT % 71.5 % (42.8-82.8); PLATELET COUNT 151 10^3/uL (134-434); RBC 3.51 M/mm3 (4.00-5.60); RDW 13.7 % (11.9-15.9); WHITE BLOOD COUNT 6.6 K/mm3 (4.0-10.0)
[2024-04-23] MEDS: ALBUTEROL SO4 2.5/IPRATROPIUM 0.5 INH SOL 3 ML VIAL.NEB. NEB PRN (10:48)
[2024-04-23] MEDS: ACETAMINOPHEN 325 MG TABLET (FP) PO PRN (15:08)
[2024-04-24] MEDS: guaiFENesin/D-METHORPHAN TAB.ER.12H PO SCH (09:33)
[2024-04-24] MEDS: TETRAHYDROZOLINE HCL EYE DROPS OS SCH (09:35)
[2024-04-24] MEDS: LIDOCAINE 5% TOPICAL PATCH TP SCH (09:36)
[2024-04-24] MEDS ORDERED: guaiFENesin/D-METHORPHAN HB 10 ML UNIT-DOSE CUPS PO PRN (14:37)
[2024-04-24] MEDS: CARBIDOPA/LEVODOPA 25/100 TABLET (FP) PO SCH (21:14)
[2024-04-24] MEDS: LIDOCAINE PATCH REMOVAL MC SCH (21:15)
[2024-04-24] MEDS: oxyCODONE HCL 5 MG TABLET PO PRN (22:46)
[2024-04-25 06:52] VITALS: BP 99/60; PULSE 54; TEMP 97.3
[2024-04-25] MEDS: PANTOPRAZOLE SOD 40 MG SUSPENSION PACKET PO SCH (09:52)
[2024-04-25] MEDS ORDERED: PHENAZOPYRIDINE HCL 100 MG TABLET (FP) PO SCH (11:00)
[2024-04-25] MEDS ORDERED: REFRIGERATED ANITBIOTICS ONE (12:22)
== END 2024-04-25 14:09 | DRG 698 ==
LOC: FER 20:27 → FM/S 23:08
PROVIDERS: ADMIT Internal Medicine
DX: T83.511A Infection and inflammatory reaction due to indwelling urethral catheter, initial encounter (principal); A41.9 Sepsis, unspecified organism; N39.0 Urinary tract infection, site not specified; E78.5 Hyperlipidemia, unspecified; N40.0 Benign prostatic hyperplasia without lower urinary tract symptoms; I12.9 Hypertensive chronic kidney disease with stage 1 through stage 4 chronic kidney disease, or unspecified chronic kidney disease; N18.9 Chronic kidney disease, unspecified; R13.10 Dysphagia, unspecified; C67.9 Malignant neoplasm of bladder, unspecified; B96.20 Unspecified Escherichia coli [E. coli] as the cause of diseases classified elsewhere; Y84.6 Urinary catheterization as the cause of abnormal reaction of the patient, or of later complication, without mention of misadventure at the time of the procedure
CPT/HCPCS: 36415; 71045-TC-FY; 80048; 80053; 81003; 81015; 83605; 83735; 84100; 85025; 85027; 87040; 87086; 87186; 87635; 93005; 94640; 97116-GP; 97162-GP; 99285-25; J0131

== ENCOUNTER 2024-09-15 18:51 | Emergency (ER) | payer OTHER, MEDICARE ==
[2024-09-15 19:02] VITALS: BMI 25.8
[2024-09-15 21:29] LABS: ABSOLUTE IMMATURE GRANULOCYTES 0.02 x10^3/uL (0.0-0.031); EOSINOPHIL % 2.6 % (0.8-7.0); EOSINOPHILS # 0.15 x10^3/uL (0.04-0.54); HEMATOCRIT 34.7 % (40.1-51.0); HEMOGLOBIN 10.4 g/dL (13.7-17.5); MEAN CELL VOLUME 84.8 fl (79.0-92.2); MEAN PLT VOLUME 9.8 fl (9.4-12.4); MONOCYTE # 0.59 x10^3/uL (0.30-0.82); PLATELET COUNT 155 x10^3/uL (163-337); RDW 15.4 % (12.6-16.6)
[2024-09-15 21:41] LABS: INR 1.13 (0.83-1.09); PH,URINE 6.5 (5.0-8.0); PROTHROMBIN TIME (PATIENT) 12.4 SEC (9.7-13.0); URINE APPEARANCE CLEAR; URINE BILIRUBIN NEGATIVE (NEGATIVE); URINE COLOR YELLOW; URINE GLUCOSE (UA) NEGATIVE (NEGATIVE); URINE KETONE NEGATIVE (NEGATIVE); URINE LEUK ESTERASE NEGATIVE (NEGATIVE); URINE NITRITE NEGATIVE (NEGATIVE); URINE PROTEIN NEGATIVE (NEGATIVE); URINE UROBILINOGEN 0.2 mg/dL (0.2-1.0)
[2024-09-15 21:57] LABS: BLOOD UREA NITROGEN 21.2 mg/dL (7-18); CALCIUM 8.9 mg/dL (8.5-10.1)
[2024-09-15 21:58] LABS: ALBUMIN 3.3 g/dl (3.4-5.0)
[2024-09-15 22:01] LABS: CREATININE 1.9 mg/dL (0.55-1.3)
[2024-09-15 22:02] LABS: BILIRUBIN,TOTAL 0.6 mg/dL (0.2-1)
[2024-09-15] MEDS ORDERED: CLINDAMYCIN 600MG PREMIX IVPB 600 MG/50 ML BAG IVPB ONE (22:13)
[2024-09-15] MEDS: CLINDAMYCIN 600MG PREMIX IVPB 600 MG/50 ML BAG IVPB ONE (22:19)
[2024-09-15 22:27] VITALS: BP 143/69; PULSE 67; RESP 20; TEMP 98.7
== END 2024-09-15 22:59 | disposition home or self-care (01) ==
LOC: JER 18:51
DX: L03.115 Cellulitis of right lower limb (principal); R30.0 Dysuria; M79.604 Pain in right leg
CPT/HCPCS: 36415; 73590-TC-RT-FY; 73610-TC-RT-FY; 73630-TC-RT-FY; 80053; 81003; 85025; 85610; 87040; 87086; 93971-TC; 99285-25